=== PATIENT | female | born 1945 | race Caucasian/White ===

== ENCOUNTER 2019-09-28 19:58 | Inpatient (IN) | payer MEDICARE, OTHER ==
[~2019-09-28] VITALS: Ht 154.9 cm; Wt 65.5 kg
[2019-09-28] MEDS: NS IV 1000 ML 1,000 ML IV SCH ×3 (20:24→22:42)
[2019-09-28] MEDS ORDERED: RT-ALBUTEROL INHALER HFA (VENTOLIN HFA) 18 GM IH ONE (20:30)
[2019-09-28 20:33] LABS: COLOR,URINE YELLOW; GLUCOSE, URINE (UA) NEGATIVE (NEGATIVE); KETONES,URINE TRACE (NEGATIVE); LEUKOCYTE ESTERASE ,URINE NEGATIVE (NEGATIVE); NITRITE,URINE NEGATIVE (NEGATIVE); PH,URINE 5.5 (5-9); PROTEIN,URINE TRACE (NEGATIVE)
[2019-09-28 20:33] LABS: BASOPHILS % (AUTO) 0 % (0-10); EOSINOPHILS # (AUTO) 0.1 10^3/uL (0.0-0.3); EOSINOPHILS % (AUTO) 0 % (0-10); HEMATOCRIT 35 % (35-52); HEMOGLOBIN 11.7 G/DL (11.5-16.0); LYMPHOCYTES % (AUTO) 4 % (12-44); MEAN CORPUSCULAR HEMOGLOBIN 30 PG (25-34); MEAN CORPUSCULAR HGB CONC 33 G/DL (32-36); MEAN CORPUSCULAR VOLUME 90 FL (80-99); MEAN PLATELET VOLUME 9.9 FL (7.4-10.4); MONOCYTES # (AUTO) 1.2 X 10^3 (0.0-1.0); MONOCYTES % (AUTO) 5 % (0-12); NEUTROPHILS # (AUTO) 22.2 X 10^3 (1.8-7.8); NEUTROPHILS % (AUTO) 91 % (42-75); PLATELET COUNT 244 10^3/uL (130-400); RED CELL DISTRIBUTION WIDTH 15.6 % (10.0-14.5); WHITE BLOOD COUNT 24.5 10^3/uL (4.3-11.0)
[2019-09-28 20:38] LABS: FIBRIN DEGRADATION PRODUCTS 2.68 UG/ML (0.00-0.49); INR 1.2 (0.8-1.4); PROTHROMBIN TIME PATIENT 15.1 SEC (12.2-14.7)
[2019-09-28 20:41] LABS: BILIRUBIN,URINE 1+ (NEGATIVE); CLARITY,URINE SL CLOUDY
[2019-09-28 20:43] LABS: AMORPHOUS SEDIMENT,UR FEW AMOR URATES /LPF; BACTERIA,URINE TRACE /HPF; HYALINE CASTS, URINE 0-2 /LPF; RBC,URINE RARE /HPF; SQUAMOUS EPITHELIAL CELL,UR RARE /HPF
--- NOTE | 2019-09-28 20:43 | ED General ---
General Chief Complaint: Respiratory Problems Stated Complaint: AMS Nursing Triage Note: pt brought in by [facility] from home with complaint of soa, alt mental status and fall. Nursing Sepsis Screen: No Definite Risk History of Present Illness Date Seen by Provider: Sep 28, 2019 Time Seen by Provider: 20:05 Initial Comments 74-year-old female presents via EMS for shortness of air and fall 2 days ago, with right forearm pain. Reports taste and smell have been decreased the last week. No head injury or LOC. Known history of COPD but hasn't seen physician in 3-4 years. Was diagnosed with COPD after [place], used inhalers initially. No fevers and homebound but family members have been in her home, daughter lives in [place], [place]. No known exposure to anyone with COVID-19. Does not take any Rx medications. Took Ibuprofen yesterday for right arm pain. History of smoking 1 pack/day, but for last week 1/4 pack a day. Denies chest pain, n/v or diaphoresis. 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 Timing/Duration: 3-4 Days Associated Systoms: Cough; No Fever/Chills; Shortness of Air, Weakness Allergies and Home Medications Allergies Coded Allergies: No Known Drug Allergies (Unverified , 09/28/19) Patient Home Medication List Home Medication List Reviewed: Yes Review of Systems Review of Systems Constitutional: see HPI, weakness Respiratory: see HPI, cough, dyspnea on exertion, phlegm, short of breath Cardiovascular: no symptoms reported, see HPI; No chest pain, No Hx of Intervention Gastrointestinal: no symptoms reported, see HPI Genitourinary: no symptoms reported, see HPI Musculoskeletal: see HPI, joint pain (right forearm) Skin: no symptoms reported, see HPI Past Owsycmw-[id number]-[id number] Hx Past Med/Social Hx: Reviewed Nursing Past Med/Soc Hx Patient Social History Alcohol Use: Denies Use Recreational Drug Use: No Smoking Status: Current Everyday Smoker Recent Foreign Travel: No Contact w/Someone Who Travel: No Recent Infectious Disease Expo: No Recent Hopitalizations: No Immunizations Up To Date Tetanus Booster (TDap): Unknown Seasonal Allergies Seasonal Allergies: No Past Medical History Surgeries: Yes Appendectomy Respiratory: Yes COPD Cardiac: No Neurological: No Genitourinary: No Gastrointestinal: No Musculoskeletal: No Endocrine: No HEENT: No Cancer: No Psychosocial: No Integumentary: No Blood Disorders: No Physical Exam-Suspected Sepsis Physical Exam Vital Signs Vital Signs - First Documented 09/28/19 09/28/19 09/28/19 19:58 20:20 21:40 Temp 35.6 Pulse 138 Resp 27 B/P (MAP) 94/59 (71) Pulse Ox 98 O2 Delivery Room Air O2 Flow Rate 2.00 FiO2 40 Capillary Refill : Less Than 3 Seconds Blood Pressure Mean: 71 Height, Weight, BMI Height: '" Weight: lbs. oz. kg; 25.00 BMI Method: General Appearance: No Apparent Distress, WD/WN Eyes: Bilateral Eye Normal Inspection, Bilateral Eye PERRL, Bilateral Eye EOMI HEENT: PERRL/EOMI, TMs Normal, Normal ENT Inspection, Pharynx Normal Neck: Full Range of Motion, Normal Inspection, Non Tender Respiratory: Accessory Muscle Use, Decreased Breath Sounds, Rhonci, Other (marked clubbing to fingers) Cardiovascular: Irregularly Irregular, Tachycardia Gastrointestinal: Normal Bowel Sounds, Non Tender, Soft Extremity: Normal Range of Motion, Pedal Edema, Other (Tenderness Right forearm with 2 + Edema. 1+ edema to LEs. ) Neurologic/Psychiatric: Alert, Oriented x3, No Motor/Sensory Deficits, Normal Mood/Affect Skin: normal color, warm/dry, ulcerations (small abrasion left forearm, edema to right arm. ) Lymphatic: No Adenopathy Focused Exam Sepsis Stage: Septic Shock Lactate Level 09/28/19 20:10: Lactic Acid Level 2.99*H 09/28/19 22:37: Time of Focused Exam: 22:30 Respiratory: Decreased Breath Sounds, Rhonci Cardiovascular: Normal Peripheral Pulses, Irregularly Irregular, Tachycardia Capillary Refill: Less Than 3 Seconds Skin: warm/dry, pallor Lactic Acid Level Laboratory Tests Test 09/28/19 20:10 09/28/19 22:37 Lactic Acid Level 2.99 MMOL/L (0.50-2.00) *H Within 3hrs of presentation: Admin fluids, Admin 30ml/kg IBW due to BMI>30, Admin ABX, Blood cultures prior to ABX's, Focus exam, Lactate level, Vasopressin therapy Progress/Results/Core Measures Suspected Sepsis Recent Fever Within 48 Hours: No Infection Criteria Present: None New/Unexplained Altered Menta: No Sepsis Screen: No Definite Risk SIRS Temperature: Pulse: 138 Respiratory Rate: 27 Laboratory Tests 09/28/19 20:10: White Blood Count 24.5H Blood Pressure 94 /59 Mean: 71 09/28/19 20:10: Lactic Acid Level 2.99*H 09/28/19 22:37: Laboratory Tests 09/28/19 20:10: Creatinine 1.14, INR Comment 1.2, Platelet Count 244, Total Bilirubin 1.6H Results/Orders Lab Results Laboratory Tests Test 09/28/19 00:00 09/28/19 20:10 09/28/19 20:22 09/28/19 20:24 Range/Units White Blood Count 24.5 H 4.3-11.0 10^3/uL Red Blood Count 3.91 L 4.35-5.85 10^6/uL Hemoglobin 11.7 11.5-16.0 G/DL Hematocrit 35 35-52 % Mean Corpuscular Volume 90 80-99 FL Mean Corpuscular Hemoglobin 30 25-34 PG Mean Corpuscular Hemoglobin Concent 33 32-36 G/DL Red Cell Distribution Width 15.6 H 10.0-14.5 % Platelet Count 244 130-400 10^3/uL Mean Platelet Volume 9.9 7.4-10.4 FL Neutrophils (%) (Auto) 91 H 42-75 % Lymphocytes (%) (Auto) 4 L 12-44 % Monocytes (%) (Auto) 5 0-12 % Eosinophils (%) (Auto) 0 0-10 % Basophils (%) (Auto) 0 0-10 % Neutrophils # (Auto) 22.2 H 1.8-7.8 X 10^3 Lymphocytes # (Auto) 1.0 1.0-4.0 X 10^3 Monocytes # (Auto) 1.2 H 0.0-1.0 X 10^3 Eosinophils # (Auto) 0.1 0.0-0.3 10^3/uL Basophils # (Auto) 0.0 0.0-0.1 10^3/uL Neutrophils % (Manual) 86 % Lymphocytes % (Manual) 5 % Monocytes % (Manual) 4 % Eosinophils % (Manual) 0 % Basophils % (Manual) 0 % Band Neutrophils 5 % Polychromasia SLIGHT Anisocytosis SLIGHT Tear Drop Cells SLIGHT Erythrocyte Sedimentation Rate 9 0-30 MM/HR Prothrombin Time 15.1 H 12.2-14.7 SEC INR Comment 1.2 0.8-1.4 Activated Partial Thromboplast Time 37 H 24-35 SEC D-Dimer 2.68 H 0.00-0.49 UG/ML Sodium Level 131 L 135-145 MMOL/L Potassium Level 4.2 3.6-5.0 MMOL/L Chloride Level 91 L 98-107 MMOL/L Carbon Dioxide Level 25 21-32 MMOL/L Anion Gap 15 H 5-14 MMOL/L Blood Urea Nitrogen 33 H 7-18 MG/DL Creatinine 1.14 0.60-1.30 MG/DL Estimat Glomerular Filtration Rate 47 BUN/Creatinine Ratio 29 Glucose Level 103 70-105 MG/DL Lactic Acid Level 2.99 *H 0.50-2.00 MMOL/L Calcium Level 10.0 8.5-10.1 MG/DL Corrected Calcium 10.8 H 8.5-10.1 MG/DL Total Bilirubin 1.6 H 0.1-1.0 MG/DL Aspartate Amino Transf (AST/SGOT) 14 5-34 U/L Alanine Aminotransferase (ALT/SGPT) 10 0-55 U/L Alkaline Phosphatase 62 40-136 U/L Lactate Dehydrogenase 223 H 125-220 U/L Troponin I 0.172 H <0.028 NG/ML C-Reactive Protein High Sensitivity 24.52 H 0.00-0.50 MG/DL B-Type Natriuretic Peptide 352.4 H <100.0 PG/ML Total Protein 7.1 6.4-8.2 GM/DL Albumin 3.0 L 3.2-4.5 GM/DL Procalcitonin 0.45 H <0.10 NG/ML Urine Color YELLOW Urine Clarity SL CLOUDY Urine pH 5.5 5-9 Urine Specific [place] 1.020 1.016-1.022 Urine Protein TRACE H NEGATIVE Urine Glucose (UA) NEGATIVE NEGATIVE Urine Ketones TRACE H NEGATIVE Urine Nitrite NEGATIVE NEGATIVE Urine Bilirubin 1+ H NEGATIVE Urine Urobilinogen 2.0 < = 1.0 MG/DL Urine Leukocyte Esterase NEGATIVE NEGATIVE Urine RBC (Auto) 1+ H NEGATIVE Urine RBC RARE /HPF Urine WBC NONE /HPF Urine Squamous Epithelial Cells RARE /HPF Urine Crystals PRESENT H /LPF Urine Amorphous Sediment FEW SHAYY URATES H /LPF Urine Bacteria TRACE /HPF Urine Casts PRESENT /LPF Urine Hyaline Casts 0-2 H /LPF Urine Mucus SMALL H /LPF Urine Culture Indicated NO Coronavirus 2019 (MARA) Negative Negative Test 09/28/19 21:33 09/28/19 22:37 Range/Units Blood Gas Puncture Site R RAD Blood Gas Patient Temperature 36.2 Arterial Blood pH 7.47 H 7.37-7.43 Arterial Blood Partial Pressure CO2 33 L 35-45 MMHG Arterial Blood Partial Pressure O2 132 H 79-93 MMHG Arterial Blood HCO3 24 23-27 MMOL/L Arterial Blood Total CO2 24.7 21.0-31.0 MMOL/L Arterial Blood Oxygen Saturation 99 94-100 % Arterial Blood Base Excess 0.2 -2.5-2.5 MMOL/L Angel Test YES-POS Blood Gas Ventilator Setting NO Blood Gas Inspired Oxygen 2L My Orders Orders - FREEMAN WILLIAM Cbc With Automated Diff (09/28/19 20:05) Comprehensive Metabolic Panel (09/28/19 20:05) Blood Culture (09/28/19 20:05) Sputum Culture (09/28/19 20:05) Urinalysis (09/28/19 20:05) Urine Culture (09/28/19 20:05) Protime With Inr (09/28/19 20:05) Partial Thromboplastin Time (09/28/19 20:05) Chest 1 View, Ap/Pa Only (09/28/19 20:05) Ed Iv/Invasive Line Start (09/28/19 20:05) Vital Signs Adult Sepsis Patie Q15M (09/28/19 20:05) O2 (09/28/19 20:05) Remove Rings In Anticipation O (09/28/19 20:05) Lactic Acid Analyzer (09/28/19 20:05) Ed Iv/Invasive Line Start (09/28/19 20:05) Ns Iv 1000 Ml (Sodium Chloride 0.9%) (09/28/19 20:05) Fibrin Degradation Products (09/28/19 20:05) Procalcitonin (Pct) (09/28/19 20:05) Hs C Reactive Protein (09/28/19 20:05) Erythrocyte Sedimentation Rate (09/28/19 20:05) LDH (09/28/19 20:05) Covid 19 Inhouse Test (09/28/19 20:05) Troponin I (09/28/19 20:15) Forearm, Right, 2 Views (09/28/19 20:24) Albuterol Inhaler (Ventolin Hfa) (09/28/19 20:30) Manual Differential (09/28/19 20:10) Aspirin Chewable Tablet (Baby Aspirin Ch (09/28/19 21:00) Vapotherm - Admin Rt Rfs (09/28/19 20:51) Coronavirus Sars-Cov-2 So 2019 (09/28/19 20:55) Norepinephrine 4 Mg/250 Ml (Norepinephri (09/28/19 20:57) Norepinephrine 4 Mg/250 Ml (Norepinephri (09/28/19 21:15) BNP (09/28/19 21:12) Arterial Blood Gas (09/28/19 21:20) Strep Pneumococcusag Urine/Csf (09/28/19 21:23) Legionella Pneum Antigen Urine (09/28/19 21:23) Catheter(Uri) To Dependent Daisy (09/28/19 21:26) Azithromycin Injection (Zithromax Inject (09/28/19 21:30) Ceftriaxone For Iv Use (Rocephin For I (09/28/19 21:30) Arterial Blood Gas (09/28/19 21:34) Enoxaparin Injection (Lovenox Injection) (09/28/19 22:15) Enoxaparin Injection (Lovenox Injection) (09/28/19 22:06) Dexamethasone Tablet (Decadron Tablet) (09/28/19 22:31) Ns Iv 1000 Ml (Sodium Chloride 0.9%) (09/28/19 22:45) Medications Given in ED Current Medications Medications Dose Ordered Sig/Shyanne Route Start Time Stop Time Status Last Admin Dose Admin Albuterol Sulfate 18 gm STK-MED ONCE IH 09/28/19 20:30 09/28/19 20:34 DC 09/28/19 20:35 18 GM Aspirin 324 mg ONCE ONCE PO 09/28/19 21:00 09/28/19 21:01 DC 09/28/19 21:07 324 MG Azithromycin 500 mg/Sodium Chloride 250 ml @ 250 mls/hr ONCE ONCE IV 09/28/19 21:30 09/28/19 22:29 DC 09/28/19 22:24 250 MLS/HR Ceftriaxone Sodium 2000 mg/ Sterile Water 20 ml @ 240 mls/hr ONCE ONCE IV 09/28/19 21:30 09/28/19 21:34 DC 09/28/19 22:24 240 MLS/HR Vital Signs/I&O 09/28/19 09/28/19 09/28/19 09/28/19 19:58 20:20 21:00 21:40 Temp 35.6 Pulse 138 130 Resp 27 B/P (MAP) 94/59 (71) 81/25 Pulse Ox 98 O2 Delivery Room Air Nasal Cannula Vapotherm O2 Flow Rate 2.00 20.00 FiO2 40 Capillary Refill : Less Than 3 Seconds Blood Pressure Mean: 71 Progress Note : Time: 20:05 Progress Note Patient seen and evaluated, COVID in house screen. NS 1 L infusing per EMS, will start second unit. Hypotensive 90s/50s, tachy 120-140. Chest xray, Labs, EKG. ASA 324 mg po 2029 Will give Lovenox 60 mg SC. 2099 B/P down to 60/30s, will start Levophed. Dr. Do consult for central line. RT here for ABGs and Vapotherm [address] Campbell, agreed to accept patient for ICU admission. Orders r eceived. 2144 B/P 105/60, pulse 105-110. Rocephin and azithromycin IV. 2199 unable to put central line in neck, Clot noted to Right IJ on ultrasound per Dr. Do. Will use right groin. Will plan CT angio chest, after central line. [address] Castanon, agree with plan of care, will continue Lovenox 60 mg BID, Cardizem drip if needed for HR > 130. 2239 Spoke to E ICU DrCarlos Report given. Will start Decadron 6 mg po daily. Discussed CT angio, since DNR and likely COVID-19 and Pneumonia, no need since covering with Lovenox. 2304 Patient to ICU. She has remained stable but guarded. B/P 90/57, HR A fib 110-120. ECG Initial ECG Impression Date: Sep 28, 2019 Initial ECG Impression Time: 20:08 Initial ECG Rate: 137 Initial ECG Rhythm: A Fib/Flutter Initial ECG Intervals: Normal Initial ECG Intervals QRSD 93, QT 347, QTc 524. [place] QRS 83, T -27 Diagnostic Imaging Diagonstic Imaging: CT Plain Films/CT/US/NM/MRI: chest Comments NAME: RUTHIE KEENE [facility] REC#: [id number] PT STATUS: REG ER : 1945 PHYSICIAN: FREEMAN WILLIAM ADMIT DATE: 09/28/19/ER Draft Date of Exam:09/28/19 CHEST 1 VIEW, AP/PA ONLY Clinical indication: Patient with shortness of air and history of COPD and asthma. Exam: Portable chest x-ray upright view. Comparisons: None. Findings: There is volume loss and small to moderate amount of consolidation involving the right perihilar region. Unknown if this represents atelectasis or a mass. There is also mild prominence of the upper mediastinum. There is a small right pleural effusion. The remainder of the lungs are clear. There is no pneumothorax. There are hypertrophic spurs involving the thoracic spine. Pulmonary vasculature and cardiac silhouette are within normal limits. Impression: 1: There is a small to moderate size area of consolidation in the right perihilar region. There is slight volume loss in the right lung. Unknown if the right perihilar area of consolidation represents a mass or consolidation. Chest CT scan with contrast is suggested for further evaluation. 2: There is a small right pleural effusion. Dictated on workstation # [id number] Dict: 09/28/[id number] Trans: 09/28/192137 [facility] [id number] Interpreted by: OCTAVIO YU MD Reviewed: Reviewed by Me Departure Impression Primary Impression: Septic shock Additional Impressions: Right middle lobe pneumonia Qualified Codes: J18.9 - Pneumonia, unspecified organism Atrial fibrillation with RVR Tobacco abuse COPD exacerbation Person under investigation for COVID-19 Disposition: ADMITTED INPATIENT Condition: Critical Admissions Decision to Admit Reason: Admit from ER (General) Decision to Admit/Date: Sep 28, 2019 Time/Decision to Admit Time: 21:00 Departure-Patient Inst. Referrals: NO,LOCAL PHYSICIAN (PCP/Family) Primary Care Physician FREEMAN WILLIAM Sep 28, 2019 20:43
[2019-09-28 20:52] LABS: BAND NEUTROPHILS 5 %; BASOPHILS % (MANUAL) 0 %; EOSINOPHILS % (MANUAL) 0 %; LYMPHOCYTES % (MANUAL) 5 %; MONOCYTES % (MANUAL) 4 %; NEUTROPHILS % (MANUAL) 86 %; POLYCHROMASIA SLIGHT
[2019-09-28 20:53] LABS: ANISOCYTOSIS SLIGHT; TEAR DROP CELLS SLIGHT
[2019-09-28 20:54] LABS: ERYTHROCYTE SEDIMENTATION RATE 9 MM/HR (0-30)
[2019-09-28] MEDS ORDERED: NOREPINEPHRINE 4 MG/250 ML 250 ML IV ONE (20:57)
[2019-09-28] MEDS ORDERED: ASPIRIN 81 MG CHEW (CHILDREN'S ASA) PO ONE (21:00)
[2019-09-28] MEDS: NOREPINEPHRINE 4 MG/250 ML 250 ML IV SCH (21:00)
[2019-09-28 21:04] LABS: BILIRUBIN,TOTAL 1.6 MG/DL (0.1-1.0); CREATININE SERUM 1.14 MG/DL (0.60-1.30); POTASSIUM 4.2 MMOL/L (3.6-5.0); TOTAL PROTEIN 7.1 GM/DL (6.4-8.2)
[2019-09-28] MEDS ORDERED: AZITHROMYCIN INJECTION 500 MG in NS (IVPB) 250 ML IV ONE (21:30)
[2019-09-28] MEDS ORDERED: cefTRIAXone FOR IV USE 2,000 MG in WATER (STERILE) FOR INJECTION 20 ML IV ONE (21:30)
--- NOTE | 2019-09-28 21:35 | Diagnostic Imaging Report ---
CLINICAL INDICATION: Patient status post fall. Patient has right forearm pain and swelling. EXAM: X-ray of the right forearm, 2 views. COMPARISON: None. FINDINGS: There is no acute fracture or dislocation. There is no elbow effusion. There are degenerative spurs involving the distal humeral medial and lateral epicondylar regions. The visualized portions of the wrist are unremarkable. Nonspecific swelling about the right upper extremity is seen. There is no radiodense foreign object. IMPRESSION: 1: There is no acute fracture or dislocation seen. 2: There is nonspecific swelling involving the visualized portions of the right arm. Dictated by: Dictated on workstation # [id number]
--- NOTE | 2019-09-28 21:38 | Diagnostic Imaging Report ---
Clinical indication: Patient with shortness of air and history of COPD and asthma. Exam: Portable chest x-ray upright view. Comparisons: None. Findings: There is volume loss and small to moderate amount of consolidation involving the right perihilar region. Unknown if this represents atelectasis or a mass. There is also mild prominence of the upper mediastinum. There is a small right pleural effusion. The remainder of the lungs are clear. There is no pneumothorax. There are hypertrophic spurs involving the thoracic spine. Pulmonary vasculature and cardiac silhouette are within normal limits. Impression: 1: There is a small to moderate size area of consolidation in the right perihilar region. There is slight volume loss in the right lung. Unknown if the right perihilar area of consolidation represents a mass or consolidation. Chest CT scan with contrast is suggested for further evaluation. 2: There is a small right pleural effusion. Dictated by: Dictated on workstation # [id number]
[2019-09-28 21:39] LABS: ABG BASE EXCESS 0.2 MMOL/L (-2.5-2.5); ABG OXYGEN SATURATION 99 % (94-100); ABG PCO2 33 MMHG (35-45); ABG PH 7.47 (7.37-7.43); ABG PO2 132 MMHG (79-93); ABG TCO2 24.7 MMOL/L (21.0-31.0); ALLENS TEST YES-POS; INSPIRED O2 2L; VENTILATOR NO
[2019-09-28 21:40] LABS: PATIENT TEMP 36.2
[2019-09-28] MEDS ORDERED: ENOXAPARIN 60 MG/0.6 ML (LOVENOX) SYR ONE (22:06)
[2019-09-28] MEDS ORDERED: ENOXAPARIN 60 MG/0.6 ML (LOVENOX) SYR SC ONE (22:15)
[2019-09-28] MEDS ORDERED: dexAMETHasone 6 MG TAB (DECADRON) ONE (22:30)
[2019-09-28] MEDS ORDERED: dexAMETHasone 6 MG TAB (DECADRON) PO STA (22:31)
[2019-09-28 23:18] VITALS: BP 83/66
[2019-09-28 23:30] VITALS: BP 89/42
[2019-09-28] MEDS ORDERED: ONDANSETRON 4 MG/2 ML (SDV) Z0FRAN IV PRN (23:30)
[2019-09-28 23:45] VITALS: BP 89/56
--- NOTE | 2019-09-28 23:57 | Consultation - Surgery ---
History of Present Illness History of Present Illness Patient Consulted On(catia/time) 09/28/19 23:52 Date Seen by Provider: Sep 28, 2019 Time Seen by Provider: 23:00 History of Present Illness Consult requested by Ling Duckworth for central line placement for Sepsis. Seen and evaluated in ED. Patient is a 74 year old female who has been having shortness of air and a fall about 2 days ago. Has increased shortness of breath last couple days. Has COPD. In ER her blood pressure has dropped into 80-90's systolic. Received fluids and now requiring pressors. Denies fever sweats chills chest pain. Chest x ray right upper lobe consolidation. Allergies and Home Medications Allergies Coded Allergies: No Known Drug Allergies (Unverified , 09/28/19) Patient Home Medication List Home Medication List Reviewed: Yes Past [id number]-Oivlxz Hx Patient Social History Alcohol Use: Denies Use Recreational Drug Use: No Smoking Status: Current Everyday Smoker Recent Foreign Travel: No Contact w/Someone Who Travel: No Recent Infectious Disease Expo: No Recent Hopitalizations: No Immunizations Up To Date Tetanus Booster (TDap): Unknown Seasonal Allergies Seasonal Allergies: No Surgeries History of Surgeries: Yes Surgeries: Appendectomy Respiratory History of Respiratory Disorde: Yes Respiratory Disorders: COPD Cardiovascular History of Cardiac Disorders: No Neurological History of Neurological Disord: No Genitourinary History of Genitourinary Disor: No Gastrointestinal History of Gastrointestinal Di: No Musculoskeletal History of Musculoskeletal Dis: No Endocrine History of Endocrine Disorders: No HEENT History of HEENT Disorders: No Cancer History of Cancer: No Psychosocial History of Psychiatric Problem: No Integumentary History of Skin or Integumenta: No Blood Transfusions History of Blood Disorders: No Reviewed Nursing Assessment Reviewed/Agree w Nursing PMH: Yes Family Medical History Significant Family History: No Pertinent Family Hx Review of Systems-General Constitutional: No chills, No diaphoresis EENTM: No blurred vision, No double vision Respiratory: dyspnea on exertion, short of breath Cardiovascular: No chest pain; edema Gastrointestinal: No abdominal pain, No diarrhea, No nausea, No vomiting Genitourinary: No decreased output, No discharge Musculoskeletal: No back pain, No joint pain Skin: No change in color, No change in hair/nails Psychiatric/Neurological: Denies Anxiety, Denies Depressed All Other Systems Reviewed Negative Unless Noted: Yes (Negative excepted noted.) Physical Exam-General Problems Physical Exam Vital Signs Vital Signs - First Documented 09/28/19 09/28/19 09/28/19 19:58 20:20 21:40 Temp 35.6 Pulse 138 Resp 27 B/P (MAP) 94/59 (71) Pulse Ox 98 O2 Delivery Room Air O2 Flow Rate 2.00 FiO2 40 Capillary Refill : Less Than 3 Seconds General Appearance: mild distress, other (chronicallly ill appearing) HEENT: PERRL/EOMI, normal ENT inspection Neck: non-tender, supple Respiratory: chest non-tender, other (slightly labored breathing, equal chest rise) Cardiovascular: irregularly irregular Gastrointestinal: non tender, soft Rectal: deferred Back: no CVA tenderness, no vertebral tenderness Extremities: non-tender, swelling Neurologic/Psychiatric: no motor/sensory deficits, alert, normal mood/affect, oriented x 3 Skin: normal color, warm/dry Lymphatic: no adenopathy Data Review Labs Laboratory Tests 09/28/19 20:10: White Blood Count 24.5H, Red Blood Count 3.91L, Hemoglobin 11.7, Hematocrit 35, Mean Corpuscular Volume 90, Mean Corpuscular Hemoglobin 30, Mean Corpuscular Hemoglobin Concent 33, Red Cell Distribution Width 15.6H, Platelet Count 244, Mean Platelet Volume 9.9, Neutrophils (%) (Auto) 91H, Lymphocytes (%) (Auto) 4L, Monocytes (%) (Auto) 5, Eosinophils (%) (Auto) 0, Basophils (%) (Auto) 0, Neutrophils # (Auto) 22.2H, Lymphocytes # (Auto) 1.0, Monocytes # (Auto) 1.2H, Eosinophils # (Auto) 0.1, Basophils # (Auto) 0.0, Neutrophils % (Manual) 86, Lymphocytes % (Manual) 5, Monocytes % (Manual) 4, Eosinophils % (Manual) 0, Basophils % (Manual) 0, Band Neutrophils 5, Polychromasia SLIGHT, Anisocytosis SLIGHT, Tear Drop Cells SLIGHT, Erythrocyte Sedimentation Rate 9, Prothrombin Time 15.1H, INR Comment 1.2, Activated Partial Thromboplast Time 37H, D-Dimer 2.68H, Sodium Level 131L, Potassium Level 4.2, Chloride Level 91L, Carbon Dioxide Level 25, Anion Gap 15H, Blood Urea Nitrogen 33H, Creatinine 1.14, Estimat Glomerular Filtration Rate 47, BUN/Creatinine Ratio 29, Glucose Level 103, Lactic Acid Level 2.99*H, Calcium Level 10.0, Corrected Calcium 10.8H, Total Bilirubin 1.6H, Aspartate Amino Transf (AST/SGOT) 14, Alanine Aminotransferase (ALT/SGPT) 10, Alkaline Phosphatase 62, Lactate Dehydrogenase 223H, Troponin I 0.172H, C-Reactive Protein High Sensitivity 24.52H, B-Type Natriuretic Peptide 352.4H, Total Protein 7.1, Albumin 3.0L, Procalcitonin 0.45H 09/28/19 20:22: Urine Color YELLOW, Urine Clarity SL CLOUDY, Urine pH 5.5, Urine Specific [place] 1.020, Urine Protein TRACEH, Urine Glucose (UA) NEGATIVE, Urine Ketones TRACEH, Urine Nitrite NEGATIVE, Urine Bilirubin 1+H, Urine Urobilinogen 2.0, Urine Leukocyte Esterase NEGATIVE, Urine RBC (Auto) 1+H, Urine RBC RARE, Urine WBC NONE, Urine Squamous Epithelial Cells RARE, Urine Crystals PRESENTH, Urine Amorphous Sediment FEW SHAYY URATESH, Urine Bacteria TRACE, Urine Casts PRESENT, Urine Hyaline Casts 0-2H, Urine Mucus SMALLH, Urine Culture Indicated NO 09/28/19 20:24: Coronavirus 2019 (MARA) Negative 09/28/19 21:33: Blood Gas Puncture Site R RAD, Blood Gas Patient Temperature 36.2, Arterial Blood pH 7.47H, Arterial Blood Partial Pressure CO2 33L, Arterial Blood Partial Pressure O2 132H, Arterial Blood HCO3 24, Arterial Blood Total CO2 24.7, Arterial Blood Oxygen Saturation 99, Arterial Blood Base Excess 0.2, Angel Test YES-POS, Blood Gas Ventilator Setting NO, Blood Gas Inspired Oxygen 2L 09/28/19 22:37: Lactic Acid Level 1.56 Assessment/Plan Assessment/Plan Assessment/Plan sepsis hypotension COPD Afib rvr Patient right upper lung consolidation will need CT for further work up when stable Patient requiring pressors for hypotension, needs central line placed. She was discussed risks and benefits and she wishes to proceed. Patient I peformed u/s and it appears that the right IJ has a clot. So placed right femoral u/s guided central line. Patient tolerated procedure well. Sent to ICU for medical management. Clinical Quality Measures DVT/VTE Risk/Contraindication: Risk Factor Score Per Nursin RFS Level Per Nursing on Admit: 4+=Very High SCOTT GARAY DO Sep 28, 2019 23:57
[2019-09-29] VITALS (27 sets, daily range): BP systolic 89–115; BP diastolic 44–76
[2019-09-29] MEDS: dilTIAZem DRIP PRE-MIX 125 ML IV SCH ×2 (00:39→10:10)
[2019-09-29] MEDS ORDERED: RT-ALBUTEROL INHALER HFA (VENTOLIN HFA) 18 GM IH PRN (01:15)
[2019-09-29] MEDS: NS IV 1000 ML 1,000 ML IV SCH ×6 (02:38→17:59)
--- NOTE | 2019-09-29 03:01 | NUR ---
EICU NOTIFIED OF LOW URINE OUTPUT. SEE ORDER HX
[2019-09-29] MEDS ORDERED: NS (IVPB) 250 ML IV ONE (03:15)
[2019-09-29] MEDS: ACETAMINOPHEN 325 MG TABLET PO PRN ×2 (04:23→23:21)
[2019-09-29 04:38] LABS: BASOPHILS % (AUTO) 0 % (0-10); EOSINOPHILS % (AUTO) 0 % (0-10); HEMATOCRIT 30 % (35-52); HEMOGLOBIN 10.1 G/DL (11.5-16.0); LYMPHOCYTES # (AUTO) 0.3 X 10^3 (1.0-4.0); LYMPHOCYTES % (AUTO) 1 % (12-44); MEAN CORPUSCULAR HEMOGLOBIN 30 PG (25-34); MEAN CORPUSCULAR HGB CONC 33 G/DL (32-36); MEAN CORPUSCULAR VOLUME 90 FL (80-99); MEAN PLATELET VOLUME 9.8 FL (7.4-10.4); MONOCYTES # (AUTO) 0.4 X 10^3 (0.0-1.0); MONOCYTES % (AUTO) 2 % (0-12); NEUTROPHILS # (AUTO) 22.9 X 10^3 (1.8-7.8); NEUTROPHILS % (AUTO) 97 % (42-75); PLATELET COUNT 230 10^3/uL (130-400); RED CELL DISTRIBUTION WIDTH 15.7 % (10.0-14.5); WHITE BLOOD COUNT 23.6 10^3/uL (4.3-11.0)
[2019-09-29 04:57] LABS: ALBUMIN 2.5 GM/DL (3.2-4.5); BILIRUBIN,TOTAL 0.9 MG/DL (0.1-1.0); CALCIUM 8.1 MG/DL (8.5-10.1); CREATININE SERUM 0.95 MG/DL (0.60-1.30); INR 1.2 (0.8-1.4); MAGNESIUM 1.8 MG/DL (1.6-2.4); PHOSPHORUS 3.3 MG/DL (2.3-4.7); POTASSIUM 3.9 MMOL/L (3.6-5.0); PROTHROMBIN TIME PATIENT 15.7 SEC (12.2-14.7); TOTAL PROTEIN 5.7 GM/DL (6.4-8.2)
--- NOTE | 2019-09-29 05:01 | OPERATIVE REPORT ---
DATE OF SERVICE: 09/28/2019 PREOPERATIVE DIAGNOSES: Hypotension, sepsis. POSTOPERATIVE DIAGNOSES: Hypotension, sepsis. PROCEDURE: Right ultrasound-guided femoral vein central line placement. SURGEON: Scott Do DO ANESTHESIA: A 1% lidocaine. ESTIMATED BLOOD LOSS: Minimal. COMPLICATIONS: None. INDICATIONS: The patient is a 74-year-old female in need of a central line due to hypotension caused by sepsis. She understands risks and benefits of procedure and wishes to proceed. The right groin was prepped and draped in a sterile fashion. A timeout was performed. Ultrasound was used to isolate the right femoral vein. Local anesthetic, 3 mL of 1% lidocaine was used to anesthetize the area and under ultrasound guidance, the right femoral vein was accessed, dark nonpulsatile blood was withdrawn. A guidewire was inserted through the needle and the needle was removed. A #11 blade scalpel was used to make a small skin incision. Dilator was advanced over the wire and removed and then the triple lumen catheter was inserted over the wire and the wire was removed. All ports were accessed and flushed without difficulty. The line was sutured in the usual fashion. The area was then washed and dried and sterile bandage was applied. The patient tolerated procedure well without any complications. Job ID: [id number] DocumentID: [id number] Dictated Date: 09/29/2019 00:22:26 Buckle Stringer Date: 09/29/2019 05:01:07 Dictated By: SCOTT DO DO
[2019-09-29] MEDS: RT-ALBUTEROL INHALER HFA (VENTOLIN HFA) 18 GM IH SCH ×4 (06:31→18:30)
[2019-09-29] MEDS: ENOXAPARIN 60 MG/0.6 ML (LOVENOX) SYR SC SCH ×2 (09:36→20:11)
[2019-09-29] MEDS: dexAMETHasone 6 MG TAB (DECADRON) PO SCH (09:36)
[2019-09-29] MEDS ORDERED: DIGOXIN 0.25 MG/ML (LANOXIN) 2 ML AMP IV SCH (11:00)
[2019-09-29] MEDS: LORazepam INJ 2 MG/ML (ATIVAN) VIAL IVP PRN (12:43)
[2019-09-29] MEDS: NOREPINEPHRINE 4 MG/250 ML 250 ML IV SCH (12:44)
[2019-09-29] MEDS ORDERED: DIGOXIN 0.25 MG/ML (LANOXIN) 2 ML AMP IV ONE (13:30)
[2019-09-29] MEDS ORDERED: rOPINIRole 1 MG (REQUIP) TABLET PO PRN (14:15)
--- NOTE | 2019-09-29 18:34 | History & Physical-Hospitalist ---
History of Present Illness HPI/Chief Complaint Nyasia Dunlap is a 74 year old female with PMH COPD, tobacco abuse, who presented with shortness of breath. She reports having a fall at home recently. She reports a cough. She denies fevers and chills. She denies chest pain. She denies abdominal pain, nausea, and vomiting. She denies diarrhea. She reportedly has had decreased taste and smell. She has a history of COPD, but has not been taking any medications or inhalers. She denies any history of AFib. She has smoked for over 50 years but says she quit about two weeks ago. Source: patient Exam Limitations: no limitations Date Seen 09/29/19 Time Seen by a Provider: 09:50 Attending Physician Ruth Madsen MD PCP No,Local Physician Referring Physician Date of Admission Sep 28, 2019 at 21:30 Home Medications & Allergies Home Medications Reviewed patient Home Medication Reconciliation performed by pharmacy medication reconciliations roof service technician and/or nursing. Patients Allergies have been reviewed. Allergies Allergies Coded Allergies No Known Drug Allergies (Unverified09/28/19) Past Fwyktid-Ipvozq-Uvvvqs Hx Past Med/Social Hx: Reviewed Nursing Past Med/Soc Hx Patient Social History Alcohol Use: Denies Use Recreational Drug Use: No Smoking Status: Current Everyday Smoker Recent Foreign Travel: No Contact w/other who traveled: No Recent Hopitalizations: No Recent Infectious Disease Expo: No Immunizations Up To Date Tetanus Booster (TDap): Unknown Seasonal Allergies Seasonal Allergies: No Past Medical History Surgeries: Appendectomy History of Blood Disorders: No Family History No Pertinent Family Hx Review of Systems Constitutional: no symptoms reported EENTM: no symptoms reported Respiratory: cough, short of breath Cardiovascular: no symptoms reported Gastrointestinal: no symptoms reported Genitourinary: no symptoms reported Musculoskeletal: no symptoms reported Skin: no symptoms reported Psychiatric/Neurological: No Symptoms Reported Physical Exam Physical Exam Vital Signs Vital Signs - First Documented 09/28/19 09/28/19 09/28/19 19:58 20:20 21:40 Temp 35.6 Pulse 138 Resp 27 B/P (MAP) 94/59 (71) Pulse Ox 98 O2 Delivery Room Air O2 Flow Rate 2.00 FiO2 40 Capillary Refill : Less Than 3 Seconds Height, Weight, BMI Height: '" Weight: lbs. oz. kg; 25.42 BMI Method: General Appearance: No Apparent Distress, WD/WN HEENT: PERRL/EOMI, Pharynx Normal Neck: Normal Inspection, Supple Respiratory: Lungs Clear, Normal Breath Sounds, No Respiratory Distress Cardiovascular: No Murmur, Irregularly Irregular, Tachycardia Gastrointestinal: Normal Bowel Sounds, Non Tender, Soft Extremity: Normal Inspection, Non Tender, Pedal Edema Neurologic/Psychiatric: Alert, Oriented x3, No Motor/Sensory Deficits, Normal Mood/Affect Skin: Normal Color, Warm/Dry Results Results/Procedures Labs Laboratory Tests 09/28/19 20:10 09/29/19 04:25 Patient resulted labs reviewed. Imaging: Reviewed Imaging Report Assessment/Plan Admission Diagnosis Septic shock Admission Status: Inpatient Order (span 2 midnights) Reason for Inpatient Admission: Shock requirng IV pressors Assessment and Plan Septic shock Community acquired pneumonia Lactic acidosis Possible lung mass Acute respiratory failure with hypoxia COPD without acute exacerbation Tobacco abuse NSTEMI, likely type II Atiral fibrillation with rapid ventricular response -SIRS+ with leukocytosis and tachycardia -CXR revealed right perihilar consolidation -Hypotensive requiring pressor support -Elevated lactic acid level -UA unremarkable -Blood cultures pending -Procalcitonin elevated, repeat trending downward -Urine strep/legionella antigens pending -Started on Rocephin and Azithromycin -COVID PCR negative, discontinue isolation -Started on Decadron for possible COVID, discontinue -Continue supplemental oxygen as needed -Obtain CT Chest -Troponin elevated 0.17, check repeat level -Started on Cardizem for AFib, transitioned to Digoxin -Cardiology following, appreciate assistance -Started on therapeutic Lovenox Diagnosis/Problems Diagnosis/Problems (1) Septic shock Status: Acute (2) Right middle lobe pneumonia Status: Acute Qualifiers: Pneumonia type: due to unspecified organism Qualified Codes: J18.9 - Pneumonia, unspecified organism (3) Lactic acidosis Status: Acute (4) Acute respiratory failure with hypoxia Status: Acute (5) NSTEMI (non-ST elevation myocardial infarction) Status: Acute (6) Atrial fibrillation with RVR Status: Acute (7) COPD exacerbation Status: Acute (8) Tobacco abuse Status: Acute Clinical Quality Measures DVT/VTE Risk/Contraindication: Risk Factor Score Per Nursin RFS Level Per Nursing on Admit: 4+=Very High RUTH MADSEN MD Sep 29, 2019 18:34
[2019-09-29] MEDS: AZITHROMYCIN 250 MG/NS 250 ML IVPB IV SCH ×2 (20:11)
[2019-09-29] MEDS: cefTRIAXone 1,000 MG/SWFI 10 ML IV PUSH IV SCH ×2 (20:11)
[2019-09-30] VITALS (25 sets, daily range): BP systolic 92–126; BP diastolic 52–76
[2019-09-30] MEDS: NS IV 1000 ML 1,000 ML IV SCH ×3 (04:30→20:27)
[2019-09-30 05:25] LABS: BASOPHILS % (AUTO) 0 % (0-10); EOSINOPHILS % (AUTO) 0 % (0-10); HEMATOCRIT 29 % (35-52); HEMOGLOBIN 9.5 G/DL (11.5-16.0); LYMPHOCYTES # (AUTO) 0.4 X 10^3 (1.0-4.0); LYMPHOCYTES % (AUTO) 2 % (12-44); MEAN CORPUSCULAR HEMOGLOBIN 30 PG (25-34); MEAN CORPUSCULAR HGB CONC 33 G/DL (32-36); MEAN CORPUSCULAR VOLUME 91 FL (80-99); MEAN PLATELET VOLUME 9.7 FL (7.4-10.4); MONOCYTES # (AUTO) 0.7 X 10^3 (0.0-1.0); MONOCYTES % (AUTO) 4 % (0-12); NEUTROPHILS # (AUTO) 17.5 X 10^3 (1.8-7.8); NEUTROPHILS % (AUTO) 94 % (42-75); PLATELET COUNT 227 10^3/uL (130-400); RED CELL DISTRIBUTION WIDTH 15.9 % (10.0-14.5); WHITE BLOOD COUNT 18.6 10^3/uL (4.3-11.0)
--- NOTE | 2019-09-30 05:39 | Diagnostic Imaging Report ---
EXAMINATION: Portable erect AP chest at 5:06 AM INDICATION: Dyspnea The appearance of the chest has worsened since the prior study of 09/28/2019 as the right lung base is now opacified by atelectasis/infiltrate and fluid. The abnormal density about the right hilum seen previously is again evident and no different. There is also a small amount of atelectasis/infiltrate and fluid now present in the left lung base. The left lung is otherwise clear. The heart is stable. The mediastinum is not widened. The osseous structures are intact. IMPRESSION: 1. The appearance of the chest has worsened since the prior study as the right lung base is now opacified by atelectasis/infiltrate and fluid. Mild left lower lobe atelectasis/infiltrate and fluid has also developed. 2. The right perihilar density seen previously is again evident and no different. I would concur with the recommendation of the previous exam that CT of the chest be performed for more sensitive evaluation of this area for a neoplastic mass. Dictated by: Dictated on workstation # [id number]
[2019-09-30 05:44] LABS: BUN/CREATININE RATIO 31; CALCIUM 7.8 MG/DL (8.5-10.1); CARBON DIOXIDE 17 MMOL/L (21-32); CHLORIDE 106 MMOL/L (98-107); CREATININE SERUM 0.81 MG/DL (0.60-1.30); GFR ESTIMATED > 60; GLUCOSE 120 MG/DL (70-105); MAGNESIUM 1.7 MG/DL (1.6-2.4); PHOSPHORUS 2.6 MG/DL (2.3-4.7); POTASSIUM 3.8 MMOL/L (3.6-5.0); SODIUM 135 MMOL/L (135-145)
[2019-09-30] MEDS: RT-ALBUTEROL INHALER HFA (VENTOLIN HFA) 18 GM IH SCH ×5 (07:05→21:52)
[2019-09-30] MEDS: DIGOXIN 0.25 MG (LANOXIN) TAB PO SCH (08:31)
[2019-09-30] MEDS: dexAMETHasone 6 MG TAB (DECADRON) PO SCH (08:31)
[2019-09-30] MEDS: ENOXAPARIN 60 MG/0.6 ML (LOVENOX) SYR SC SCH ×2 (08:31→20:21)
--- NOTE | 2019-09-30 09:15 | NUR ---
Pt taken to CT scan via bed at this time by this RN. VSS during transfer.
--- NOTE | 2019-09-30 10:02 | Diagnostic Imaging Report ---
PROCEDURE: CT angiography of the chest with contrast. TECHNIQUE: Multiple contiguous axial images were obtained through the chest after uneventful bolus administration of intravenous contrast. 3D reconstructed CTA MIP acquisitions were also performed. Auto Exposure Controls were utilized during the CT exam to meet ALARA standards for radiation dose reduction. INDICATION: Right lung mass. PE. Shortness of breath. COMPARISON: Radiographs from the same day FINDINGS: There is marked motion artifact throughout the exam resulting in suboptimal evaluation. There is a large mass in the region of the right hilum which measures up to 9.6 x 6.2 cm on axial imaging. There is no significant enhancement, and a cystic mass is in the differential, however there does appear to be invasion of the right and left atria as well as the interatrial septum. This mass causes severe narrowing of the right upper and lower pulmonary arteries, although some contrast does pass through the arteries. There is severe narrowing to the point of occlusion of the right pulmonary veins. There is also narrowing of the right lower lobe bronchi and there appears to be complete occlusion of the right upper lobe bronchus. Some of the mass measured above could include atelectatic collapse of the right upper lobe. The pulmonary arteries are diagnostic to the segmental level. No filling defects are seen on the left to indicate a pulmonary embolus. The visible portions of the right pulmonary arteries demonstrate no filling defects as well. The heart is normal in size. No right heart strain is seen. There is a prominent right lower paratracheal lymph node measuring up to 1.6 cm in the short axis, may be reactive. There is a large right pleural effusion with associated atelectasis. There is a small left pleural effusion with associated atelectasis. No pneumothorax is seen. No acute osseous abnormality is seen. Imaged portions of the upper abdomen demonstrate no acute abnormality. There is diffuse subcutaneous anasarca. IMPRESSION: 1. Marked motion artifact resulting in suboptimal evaluation. 2. Large right hilar mass, which narrows the right pulmonary bronchi and right pulmonary arteries and veins. This appears to invade the right upper lobe bronchus as well as the right and left atria. Consider tissue sampling with bronchoscopy. 3. No pulmonary embolus is seen. 4. Large right and small left pleural effusions. Diffuse anasarca. Dictated by: Dictated on workstation # [id number]
[2019-09-30] MEDS ORDERED: IOHEXOL 350 MG/ML 100 ML (OMNIPAQUE 350) VIAL IV ONE (10:45)
[2019-09-30] MEDS ORDERED: NS 100 ML (IVPB) BAG IV ONE (10:45)
[2019-09-30] MEDS ORDERED: HOLD METFORMIN - RECEIVED CONTRAST 20 ML VIAL IV SCH (10:45)
--- NOTE | 2019-09-30 12:28 | Progress Note - Hospitalist ---
Subjective HPI/CC On Admission Date Seen by Provider: Sep 30, 2019 Time Seen by Provider: 10:00 Nyasia Dunlap is a 74 year old female with PMH COPD, tobacco abuse, who presented with shortness of breath. She reports having a fall at home recently. She reports a cough. She denies fevers and chills. She denies chest pain. She denies abdominal pain, nausea, and vomiting. She denies diarrhea. She reportedly has had decreased taste and smell. She has a history of COPD, but has not been taking any medications or inhalers. She denies any history of AFib. She has smoked for over 50 years but says she quit about two weeks ago. Subjective/Events-last exam she reports feeling better today. She denies any fevers or chills. She still has a cough. She has not been eating or drinking much. Focused Exam Lactate Level 09/28/19 20:10: Lactic Acid Level 2.99*H 09/28/19 22:37: Lactic Acid Level 1.56 Time of Focused Exam: 22:30 Objective Exam Vital Signs Vital Signs Date Time Temp Pulse Resp B/P (MAP) Pulse Ox O2 Delivery O2 Flow Rate FiO2 09/30/19 11:00 87 21 100/60 (73) 99 Vapotherm 25.00 21.00 09/30/19 10:55 21 09/30/19 08:19 36.6 Capillary Refill : Less Than 3 Seconds General Appearance: No Apparent Distress, Chronically ill Respiratory: No Respiratory Distress, Decreased Breath Sounds (right side), Other (wearing nasal cannula) Cardiovascular: Regular Rate, Rhythm, No Edema, No Murmur Gastrointestinal: Normal Bowel Sounds, Non Tender, Soft Extremity: Normal Inspection, Non Tender, Pedal Edema Neurologic/Psychiatric: Alert, Oriented x3, No Motor/Sensory Deficits, Normal Mood/Affect Skin: Normal Color, Warm/Dry Results/Procedures Lab Laboratory Tests 09/30/19 05:15 Patient resulted labs reviewed. Imaging: Reviewed Imaging Report Assessment/Plan Assessment and Plan Assess & Plan/Chief Complaint Community acquired pneumonia Right lung mass Acute respiratory failure with hypoxia COPD without acute exacerbation Tobacco abuse NSTEMI, likely type II Atiral fibrillation with rapid ventricular response -No longer requiring pressors -Continue Rocephin and Azithromycin -COVID PCR negative -Continue supplemental oxygen as needed -CT Chest showed no PE, revealed right hilar mass with likely bronchial invasion -consult pulmonology for likely bronchoscopy -Hold anticoagulation -Continue Digoxin -Cardiology following, appreciate assistance Septic shock, resolved Lactic acidosis, resolved Diagnosis/Problems Diagnosis/Problems (1) Septic shock Status: Resolved Resolution Date/Time: 09/30/19 @ 12:25 (2) Right middle lobe pneumonia Status: Acute Qualifiers: Pneumonia type: due to unspecified organism Qualified Codes: J18.9 - Pneumonia, unspecified organism (3) Lactic acidosis Status: Resolved Resolution Date/Time: 09/30/19 @ 12:25 (4) Acute respiratory failure with hypoxia Status: Acute (5) NSTEMI (non-ST elevation myocardial infarction) Status: Acute (6) Atrial fibrillation with RVR Status: Acute (7) COPD exacerbation Status: Acute (8) Tobacco abuse Status: Acute (9) Mass of right lung Status: Acute Clinical Quality Measures DVT/VTE Risk/Contraindication: Risk Factor Score Per Nursin RFS Level Per Nursing on Admit: 4+=Very High CHRIS MADSEN MD Sep 30, 2019 12:28
--- NOTE | 2019-09-30 12:43 | Consultation-Cardiology ---
HPI-Cardiology Cardiology Consultation: Date of Consultation 09/30/19 Time Seen by a Provider: 12:10 Date of Admission Attending Physician Ruth Campbell MD Admitting Physician No,Local Physician Consulting Physician SOL GALVAN MD, MA, FACP, FACC, FSCAI, CCDS HPI: Chief Complaint: Reason for Cardiology consultation: A Fib HPI 74 yo woman admitted to the [facility] on 09/27/09 with gen weakness and malaise and feverish feeling and shortness of breath. Found to septic and somewhat hypotensive and in A Fib. Still feels unwell. Does not report cp or palp or syncope. Has had a productive cough (tenacious, yellowish sputum) for days/weeks. Notes mild leg swelling. Denies focal weakness or seizure Review of Systems-Cardiology Review of Systems Constitutional: As described under HPI Eyes: No vision change Ears/Nose/Throat: No ear discharge, No nasal drainage, No recent hearing loss Respiratory: As described under HPI Cardiovascular: As described under HPI Gastrointestinal: No diarrhea, No nausea, No vomiting Genitourinary: No dysuria, No hematuria, No urine frequency changes Musculoskeletal: back pain (chronic) Psychiatric/Neurological: As described under HPI Hematologic: No bleeding abnormalities All Other Systems Reviewed Negative Unless Noted: Yes (Negative excepted noted.) GBT-Llrrce-Ocgsic Hx Patient Social History Alcohol Use: Denies Use Recreational Drug Use: No Smoking Status: Current Everyday Smoker Recent Foreign Travel: No Recent Infectious Disease Expo: No Hospitalization with Isolation: Droplet Immunizations Up To Date Tetanus Booster (TDap): Unknown Past Medical History PMH As described under Assessment. Family Medical History Family Medical History: Does not report fam h/o early CAD Allergies and Home Medications Allergies Coded Allergies: No Known Drug Allergies (Unverified , 09/28/19) Patient Home Medication List Home Medication List Reviewed: Yes Physical Exam-Cardiology Physical Exam Vital Signs/I&O 09/30/19 09/30/19 09/30/19 09/30/19 01:00 01:00 02:00 02:25 Pulse 83 91 84 Resp 19 20 B/P (MAP) 100/56 (71) 99/61 (74) Pulse Ox 100 90 O2 Delivery Room Air Room Air Vapotherm O2 Flow Rate 25.00 21.00 09/30/19 09/30/19 09/30/19 09/30/19 03:00 04:00 04:00 04:07 Pulse 109 96 Resp 12 12 B/P (MAP) 104/53 (70) 96/54 (68) Pulse Ox 96 100 O2 Delivery Vapotherm Vapotherm Vapotherm Room Air O2 Flow Rate 25.00 25.00 25.00 21.00 21.00 FiO2 21 09/30/19 09/30/19 09/30/19 09/30/19 05:00 05:08 06:00 07:00 Pulse 93 96 82 Resp 16 20 B/P (MAP) 101/52 (68) 94/61 (72) Pulse Ox 96 98 O2 Delivery Room Air Vapotherm Vapotherm O2 Flow Rate 25.00 25.00 21.00 21.00 09/30/19 09/30/19 09/30/19 09/30/19 07:00 07:05 08:00 08:00 Pulse 99 107 Resp 26 10 B/P (MAP) 92/61 (71) 97/62 (74) Pulse Ox 95 95 91 92 O2 Delivery Vapotherm Vapotherm Vapotherm Vapotherm O2 Flow Rate 25.00 25.00 25.00 25.00 21.00 21.00 FiO2 21 21 09/30/19 09/30/19 09/30/19 09/30/19 08:00 08:19 09:00 10:00 Temp 36.3 36.6 Pulse 99 109 87 Resp 16 28 B/P (MAP) 100/55 (70) 96/68 (77) Pulse Ox 97 92 O2 Delivery Vapotherm Vapotherm O2 Flow Rate 25.00 25.00 21.00 21.00 09/30/19 09/30/19 09/30/19 10:55 11:00 12:00 Pulse 87 86 Resp 21 23 B/P (MAP) 100/60 (73) 106/62 (77) Pulse Ox 94 99 99 O2 Delivery Vapotherm Vapotherm Vapotherm O2 Flow Rate 20.00 25.00 25.00 21.00 21.00 FiO2 21 09/30/19 00:00 Intake Total 375 ml Output Total 300 ml Balance 75 ml Capillary Refill : Less Than 3 Seconds Constitutional: AAO x 3, well-developed, well-nourished HEENT: EOMI, hearing is well preserved; No xanthelasmas are seen Neck: carotid pulses are 2 + bilaterally Respiratory: No accessory muscle use; other (fair air entry, prolonged exp, rhonchi over large airways, coarse basal crackles) Cardiovascular: irregularly irregular, S1 and S2, systolic murmur (soft WILLIAM at card base) Gastrointestinal: No tender; soft; No guarding, No rebound; audible bowel sounds Extremities: swelling (mild, bilateral leg swelling); No clubbing, No cyanosis Neurologic/Psychiatric: alert, oriented x 3, other (moves all limbs equally) Skin: warm/dry, pallor Lymphatic: no adenopathy Data Review Labs Laboratory Tests 09/29/19 20:07: Troponin I 0.096H 09/30/19 05:15: White Blood Count 18.6H, Red Blood Count 3.14L, Hemoglobin 9.5L, Hematocrit 29L, Mean Corpuscular Volume 91, Mean Corpuscular Hemoglobin 30, Mean Corpuscular Hemoglobin Concent 33, Red Cell Distribution Width 15.9H, Platelet Count 227, Mean Platelet Volume 9.7, Neutrophils (%) (Auto) 94H, Lymphocytes (%) (Auto) 2L, Monocytes (%) (Auto) 4, Eosinophils (%) (Auto) 0, Basophils (%) (Auto) 0, Neutrophils # (Auto) 17.5H, Lymphocytes # (Auto) 0.4L, Monocytes # (Auto) 0.7, Eosinophils # (Auto) 0.0, Basophils # (Auto) 0.0, Sodium Level 135, Potassium Level 3.8, Chloride Level 106, Carbon Dioxide Level 17L, Anion Gap 12, Blood Urea Nitrogen 25H, Creatinine 0.81, Estimat Glomerular Filtration Rate > 60, BUN/Creatinine Ratio 31, Glucose Level 120H, Calcium Level 7.8L, Phosphorus Level 2.6, Magnesium Level 1.7 Microbiology 09/28/19 MRSA Screen - Final, Complete MRSA not isolated 09/28/19 Urine Culture - Final, Complete NO GROWTH 09/28/19 Blood Culture - Preliminary, Resulted No growth Laboratory Tests 09/28/19 20:10 09/29/19 04:25 09/30/19 05:15 A/P-Cardiology Assessment/Admission Diagnosis Septic shock due to community-acquired pneumonia Type 2 [place] (due to shock) PAF Chronic tobacco use COPD Anemia of undetermined age and etiology Discussion and Recomendations * Dig for vent rate control * Apixaban for stroke prophylaxis * Advised to quit smoking * Echo * Monitor labs * Other issues being managed by the [facility] Clinical Quality Measures DVT/VTE Risk/Contraindication: Risk Factor Score Per Nursin RFS Level Per Nursing on Admit: 4+=Very High SOL GALVAN MD FACP FAC CCDS Sep 30, 2019 12:43
[2019-09-30] MEDS: NOREPINEPHRINE 4 MG/250 ML 250 ML IV SCH (12:51)
[2019-09-30] MEDS: cefTRIAXone 1,000 MG/SWFI 10 ML IV PUSH IV SCH ×2 (20:20)
[2019-09-30] MEDS: AZITHROMYCIN 250 MG/NS 250 ML IVPB IV SCH ×2 (20:21)
[2019-09-30] MEDS: ACETAMINOPHEN 325 MG TABLET PO PRN (20:21)
[2019-09-30] MEDS ORDERED: APIXABAN 5 MG (ELIQUIS) TABLET PO SCH (21:00)
--- NOTE | 2019-09-30 21:38 | NUR ---
E-ICU NOTIFIED OF PT LOW URINE OUTPUT (100ML IN LAST 4 HOURS). ORDERS GIVEN. SEE ORDER HISTORY.
[2019-09-30] MEDS ORDERED: NS IV 500 ML 500 ML ONE (21:44)
[2019-09-30] MEDS ORDERED: NS IV 1000 ML 500 ML IV SCH (21:45)
[2019-09-30] MEDS: dilTIAZem DRIP PRE-MIX 125 ML IV SCH (22:39)
[2019-10-01] VITALS (24 sets, daily range): BP systolic 94–143; BP diastolic 50–82
[2019-10-01] MEDS: NS IV 1000 ML 1,000 ML IV SCH (00:43)
--- NOTE | 2019-10-01 01:13 | NUR ---
E-ICU NOTIFIED OF PT SHALLOWING BREATHING AND BEING TACHYPNEIC WITH RESPIRATIONS IN THE 30-40S. ORDERS GIVEN FOR ABG AND TO DO MORNING CHEST XRAY NOW.
[2019-10-01 01:21] LABS: ABG BASE EXCESS -4.7 MMOL/L (-2.5-2.5); ABG OXYGEN SATURATION 95 % (94-100); ABG PCO2 29 MMHG (35-45); ABG PH 7.43 (7.37-7.43); ABG PO2 70 MMHG (79-93); ABG TCO2 19.9 MMOL/L (21.0-31.0)
[2019-10-01 01:22] LABS: ALLENS TEST YES-POS
[2019-10-01 01:23] LABS: INSPIRED O2 25%; PATIENT TEMP 36.2; VENTILATOR NO
[2019-10-01] MEDS ORDERED: FUROSEMIDE 40 MG/4 ML INJ (LASIX) ONE (01:32)
[2019-10-01 01:44] LABS: BASOPHILS % (AUTO) 0 % (0-10); EOSINOPHILS % (AUTO) 0 % (0-10); HEMATOCRIT 30 % (35-52); HEMOGLOBIN 9.9 G/DL (11.5-16.0); LYMPHOCYTES # (AUTO) 0.4 X 10^3 (1.0-4.0); LYMPHOCYTES % (AUTO) 2 % (12-44); MEAN CORPUSCULAR HEMOGLOBIN 30 PG (25-34); MEAN CORPUSCULAR HGB CONC 33 G/DL (32-36); MEAN CORPUSCULAR VOLUME 91 FL (80-99); MEAN PLATELET VOLUME 9.8 FL (7.4-10.4); MONOCYTES # (AUTO) 0.8 X 10^3 (0.0-1.0); MONOCYTES % (AUTO) 4 % (0-12); NEUTROPHILS # (AUTO) 19.4 X 10^3 (1.8-7.8); NEUTROPHILS % (AUTO) 95 % (42-75); PLATELET COUNT 239 10^3/uL (130-400); RED CELL DISTRIBUTION WIDTH 16.1 % (10.0-14.5); WHITE BLOOD COUNT 20.5 10^3/uL (4.3-11.0)
[2019-10-01] MEDS ORDERED: FUROSEMIDE 40 MG/4 ML INJ (LASIX) IVP ONE (01:45)
[2019-10-01 02:09] LABS: BUN/CREATININE RATIO 30; CALCIUM 8.2 MG/DL (8.5-10.1); CARBON DIOXIDE 14 MMOL/L (21-32); CHLORIDE 109 MMOL/L (98-107); CREATININE SERUM 0.79 MG/DL (0.60-1.30); GFR ESTIMATED > 60; GLUCOSE 112 MG/DL (70-105); MAGNESIUM 1.7 MG/DL (1.6-2.4); PHOSPHORUS 2.9 MG/DL (2.3-4.7); POTASSIUM 3.8 MMOL/L (3.6-5.0); SODIUM 136 MMOL/L (135-145)
[2019-10-01] MEDS: RT-ALBUTEROL INHALER HFA (VENTOLIN HFA) 18 GM IH SCH (02:15)
--- NOTE | 2019-10-01 04:20 | Pulmonary Consultation ---
History of Present Illness History of Present Illness Date Seen by Provider: Oct 01, 2019 Time Seen by Provider: 04:15 Date of Admission History of Present Illness 74yo with hx of COPD, tobacco dependance presented to ED secondary to worsening SOB, cough, and recent fall at home. Denies f/ns/chills. No CP, abdominal pain, or n/v/d. Allergies and Home Medications Allergies Coded Allergies: No Known Drug Allergies (Unverified , 09/28/19) Past Nuwdlxe-Gohtrd-Qagqiw Hx Past Med/Social Hx: Reviewed Nursing Past Med/Soc Hx Patient Social History Alcohol Use: Denies Use Recreational Drug Use: No Smoking Status: Current Everyday Smoker Recent Foreign Travel: No Contact w/Someone Who Travel: No Recent Infectious Disease Expo: No Recent Hopitalizations: No Immunizations Up To Date Tetanus Booster (TDap): Unknown Seasonal Allergies Seasonal Allergies: No Past Medical History Surgeries: Yes Appendectomy Respiratory: Yes COPD Cardiac: No Neurological: No Genitourinary: No Gastrointestinal: No Musculoskeletal: No Endocrine: No HEENT: No Cancer: No Psychosocial: No Integumentary: No Blood Disorders: No Family Medical History No Pertinent Family Hx Review of Systems Time Seen by Provider: 04:29 Sepsis Event Evaluation Height, Weight, BMI Height: '" Weight: lbs. oz. kg; 25.42 BMI Method: Exam Exam Vital Signs Date Time Temp Pulse Resp B/P (MAP) Pulse Ox O2 Delivery O2 Flow Rate FiO2 10/01/19 03:00 96 24 119/63 (81) 92 Vapotherm 20.00 21.00 10/01/19 03:00 92 Vapotherm 20.00 21 10/01/19 03:00 36.2 10/01/19 02:21 85 27 94 Vapotherm 20.00 21.00 10/01/19 02:15 97 Vapotherm 20.00 25 10/01/19 02:00 94 28 104/74 (84) 96 Vapotherm 20.00 25.00 10/01/19 01:00 96 10/01/19 01:00 96 24 122/63 (82) 97 Vapotherm 20.00 25.00 10/01/19 00:00 81 120/69 (86) 95 Vapotherm 20.00 25.00 09/30/19 23:25 92 Vapotherm 20.00 21 09/30/19 23:23 36.0 09/30/19 23:00 80 20 115/64 (81) 97 Vapotherm 20.00 25.00 09/30/19 22:00 83 23 116/68 (84) 99 Vapotherm 20.00 25.00 09/30/19 21:58 92 24 98 Vapotherm 20.00 25.00 09/30/19 21:53 97 Vapotherm 20.00 35 09/30/19 21:00 93 108/61 (77) 94 Vapotherm 20.00 35.00 09/30/19 20:00 90 32 114/68 (83) 96 Vapotherm 20.00 35.00 09/30/19 20:00 92 Vapotherm 25.00 21 09/30/19 20:00 36.0 09/30/19 19:50 89 33 100 Vapotherm 20.00 35.00 09/30/19 19:42 95 Vapotherm 20.00 21 09/30/19 19:00 86 24 105/57 (73) 98 Vapotherm 20.00 21.00 09/30/19 19:00 86 09/30/19 18:00 94 31 113/66 (82) 93 Vapotherm 25.00 21.00 09/30/19 17:00 99 18 126/76 (93) 92 Vapotherm 25.00 21.00 09/30/19 16:00 92 Vapotherm 25.00 21 09/30/19 16:00 91 20 111/70 (84) 96 Vapotherm 25.00 21.00 09/30/19 15:00 80 18 116/63 (80) 96 Vapotherm 25.00 21.00 09/30/19 14:40 94 Vapotherm 20.00 21 09/30/19 14:00 90 29 104/62 (76) 95 Vapotherm 25.00 21.00 09/30/19 13:00 93 34 106/63 (77) 95 Vapotherm 25.00 21.00 09/30/19 12:38 88 09/30/19 12:00 92 Vapotherm 25.00 21 09/30/19 12:00 86 23 106/62 (77) 99 Vapotherm 25.00 21.00 09/30/19 11:00 87 21 100/60 (73) 99 Vapotherm 25.00 21.00 09/30/19 10:55 94 Vapotherm 20.00 21 09/30/19 10:00 87 28 96/68 (77) 92 Vapotherm 25.00 21.00 09/30/19 09:00 109 16 100/55 (70) 97 Vapotherm 25.00 21.00 09/30/19 08:19 36.6 99 09/30/19 08:00 36.3 09/30/19 08:00 92 Vapotherm 25.00 21 09/30/19 08:00 107 10 97/62 (74) 91 Vapotherm 25.00 21.00 09/30/19 07:05 95 Vapotherm 25.00 21 09/30/19 07:00 99 26 92/61 (71) 95 Vapotherm 25.00 21.00 09/30/19 07:00 82 09/30/19 06:00 96 20 94/61 (72) 98 Vapotherm 25.00 21.00 09/30/19 05:08 Vapotherm 25.00 21.00 09/30/19 05:00 93 16 101/52 (68) 96 Room Air I & O 10/01/19 07:00 Intake Total 1990 ml Output Total 475 ml Balance 1515 ml Height & Weight Height: '" Weight: lbs. oz. kg; 25.42 BMI Method: General Appearance: No Apparent Distress, Chronically ill HEENT: PERRL/EOMI, Pharynx Normal Neck: Normal Inspection, Supple Respiratory: No Respiratory Distress, Decreased Breath Sounds (right side), Other (wearing nasal cannula) Cardiovascular: Regular Rate, Rhythm, No Edema, No Murmur Capillary Refill: Less Than 3 Seconds Gastrointestinal: non tender, soft Extremity: Normal Inspection, Non Tender, Pedal Edema Neurologic/Psychiatric: Alert, Oriented x3, No Motor/Sensory Deficits, Normal Mood/Affect Skin: Normal Color, Warm/Dry Lymphatic: No Adenopathy Results Lab Laboratory Tests 09/29/19 04:25 09/30/19 05:15 10/01/19 01:34 Assessment/Plan Assessment/Plan Acute on chronic respiratory failure CAP with sepsis -Currently on Rocephin and Azithromycin -IVF Hypotension - Now improved Right lung mass RUL with bulky lymphadenopathy -PT needs bronchoscopy with EBUS. Will schedule for this week. COPD - currently stable Tobacco dependace NSTEMI -Cardiology is following GENNARO BARBOSA DO Oct 01, 2019 04:20
[2019-10-01] MEDS: RT-ALBUTEROL/IPRATROPIUM 3 ML (DUONEB) VIAL INH SCH ×5 (06:11→22:07)
[2019-10-01] MEDS: LORazepam INJ 2 MG/ML (ATIVAN) VIAL IVP PRN ×3 (06:26→20:25)
--- NOTE | 2019-10-01 06:30 | Diagnostic Imaging Report ---
INDICATION: Dyspnea COMPARISON STUDY: Chest from yesterday. FINDINGS: Portable upright view of the chest demonstrates slight increase of the right pleural effusion. Right hilar mass and atelectasis is again identified. Minimal atelectasis in the left base is again identified. The vascularity is normal. IMPRESSION: There has been some increase of the right pleural effusion since yesterday. Atelectasis and the right hilar mass are stable. Dictated by: Dictated on workstation # [id number]
[2019-10-01] MEDS: DIGOXIN 0.25 MG (LANOXIN) TAB PO SCH (07:33)
[2019-10-01] MEDS: ENOXAPARIN 60 MG/0.6 ML (LOVENOX) SYR SC SCH ×2 (07:34→20:25)
--- NOTE | 2019-10-01 08:41 | Progress Note - Hospitalist ---
Subjective HPI/CC On Admission Date Seen by Provider: Oct 01, 2019 Time Seen by Provider: 08:33 Nyasia Dunlap is a 74 year old female with PMH COPD, tobacco abuse, who presented with shortness of breath. She reports having a fall at home recently. She reports a cough. She denies fevers and chills. She denies chest pain. She denies abdominal pain, nausea, and vomiting. She denies diarrhea. She reportedly has had decreased taste and smell. She has a history of COPD, but has not been taking any medications or inhalers. She denies any history of AFib. She has smoked for over 50 years but says she quit about two weeks ago. Subjective/Events-last exam Pt reports doing better this morning. Was very short of breath overnight. Given Lasix this AM and breathing better. Discussed with RN who states patient is unsu re about treatment options she would want if this is cancer. RN placed palliative care consult. Focused Exam Lactate Level 09/28/19 20:10: Lactic Acid Level 2.99*H 09/28/19 22:37: Lactic Acid Level 1.56 Time of Focused Exam: 22:30 Objective Exam Vital Signs Vital Signs Date Time Temp Pulse Resp B/P (MAP) Pulse Ox O2 Delivery O2 Flow Rate FiO2 10/01/19 08:00 111 43 106/68 (81) 91 Vapotherm 20.00 21.00 10/01/19 07:00 36.3 10/01/19 06:11 21 Capillary Refill : Less Than 3 Seconds General Appearance: No Apparent Distress, Chronically ill Respiratory: No Accessory Muscle Use, Decreased Breath Sounds, Other (on vapotherm) Cardiovascular: Irregularly Irregular (normal rate) Gastrointestinal: Normal Bowel Sounds, Non Tender, Soft Genital/Rectal: Other (catheter in place) Neurologic/Psychiatric: Alert, Oriented x3, Normal Mood/Affect Results/Procedures Lab Laboratory Tests 10/01/19 01:34 Patient resulted labs reviewed. Imaging: Reviewed Imaging Report Assessment/Plan Assessment and Plan Assess & Plan/Chief Complaint Community acquired pneumonia Right lung mass Acute respiratory failure with hypoxia COPD without acute exacerbation Tobacco abuse NSTEMI, likely type II Atiral fibrillation with rapid ventricular response- RVR resolved -Continue Rocephin and Azithromycin -COVID PCR negative -Continue Vapotherm, wean as able - Lasix given this AM -CT Chest showed no PE, revealed right hilar mass with likely bronchial invasion -consult pulmonology for likely bronchoscopy, discussed with Dr Lucas who will plan for it this week if patient agreeable -Continue Lovenox, until bronchoscopy scheduled -Continue Digoxin -Cardiology following, appreciate assistance -palliative care consult placed Septic shock, resolved Lactic acidosis, resolved Diagnosis/Problems Diagnosis/Problems (1) Mass of right lung Status: Acute (2) Lactic acidosis Status: Resolved Resolution Date/Time: 09/30/19 @ 12:25 (3) Septic shock Status: Resolved Resolution Date/Time: 09/30/19 @ 12:25 (4) Acute respiratory failure with hypoxia Status: Acute (5) NSTEMI (non-ST elevation myocardial infarction) Status: Acute (6) Right middle lobe pneumonia Status: Acute Qualifiers: Pneumonia type: due to unspecified organism Qualified Codes: J18.9 - Pneumonia, unspecified organism (7) Atrial fibrillation with RVR Status: Acute (8) Tobacco abuse Status: Acute Clinical Quality Measures DVT/VTE Risk/Contraindication: Risk Factor Score Per Nursin RFS Level Per Nursing on Admit: 4+=Very High DANIELA CHACON MD Oct 01, 2019 08:41
[2019-10-01] MEDS: ADVAIR HFA 115/21 MCG INHALER 8 GM IH SCH ×2 (09:49→18:42)
--- NOTE | 2019-10-01 10:56 | NUR ---
SPOKE WITH THE PT TO COMPLETE THE MED REC PT DENIES TAKING ANY PRESCRIPTION OR OTC MEDICATIONS WHEN I ASKED HER ABOUT A PREFERRED PHARMACY SHE DIDNT KNOW AND DIDNT WANT TO NAME A PHARMACY AND SAID SHE WASNT GETTING ANY BETTER AND DIDNT SEE THE POINT. I EXPLAINED TO HER THE REASONS WHY AND TOLD HER TO THINK ABOUT IT AND LET US KNOW WHEN SHE IS BEING DISCHARGED
--- NOTE | 2019-10-01 12:03 | NUR ---
Palliative Care RN in to see patient. She is laying in her bed with her eyes closed upon entering the room. She responds while eyes are still closed and says 'I didn't sleep well last night, so I am taking the day off", and will not discuss her options currently Will try again at another time.
--- NOTE | 2019-10-01 14:20 | NUR ---
"RD ASSESSMENT PMHx: COPD; tobacco abuse PT INTERACTION: Pt was semi-awake and pleasant during nutrition assessment. Pt states current appetite is poor. Note avg PO intake 25-50% x2d, per chart review. Pt states following a regular diet at home, and has no issues with chewing/swallowing food. Pt states no recent issues with nausea, vomiting, constipation, or diarrhea, and that her last BM was 09/23. Note pt not currently on bowel regimen per chart review. Pt states recent wt loss, but unsure of amount/timeframe. Note unable to determine recent wt hx, per chart review. ABNORMAL NUTRITION-RELATED LAB VALUES LOW: Ca 8.2; HIGH: Cl 109; BUN 24; glu 112 Est. kcal needs: 1575 kcal | 25 kcal/kg Est. Pro needs: 51 g Pro | 0.8 g Pro/kg PES STATEMENT: Inadequate oral intake (NI-2.1) related to loss of appetite as evidenced by pt interview | avg PO intake 25-50% x2d INTERVENTION: Continue with current diet order of Regular diet. Pt may benefit from nutrition supplementation if PO intake remains low. Pt may benefit from more aggressive bowel regimen if constipation persists. Encouraged pt to eat when able. Will continue to follow and reassess as pt needs, intake, and status change. MONITOR/EVALUATE: PO Intake; Plan of Care; Hydration Status; Weight Status; Lab Values Clau [place], , RD, LD"
--- NOTE | 2019-10-01 16:12 | Progress Note - Cardiology ---
Cardiology SOAP Progress Note Subjective: Reports gen weakness and malaise. Does not feel well Shortness of breath with activity No cp No palp or syncope No n/v/d Objective: I&O/Vital Signs 10/01/19 10/01/19 10/01/19 10/01/19 05:00 06:00 06:11 06:51 Pulse 89 89 93 Resp 34 31 B/P (MAP) 115/69 (84) 114/65 (81) Pulse Ox 95 93 92 O2 Delivery Vapotherm Vapotherm Vapotherm O2 Flow Rate 20.00 20.00 20.00 21.00 21.00 FiO2 21 10/01/19 10/01/19 10/01/19 10/01/19 07:00 08:00 08:00 09:00 Temp 36.3 Pulse 98 111 96 Resp 34 43 34 B/P (MAP) 118/72 (87) 106/68 (81) 97/65 (76) Pulse Ox 92 91 92 92 O2 Delivery Vapotherm Vapotherm Vapotherm Vapotherm O2 Flow Rate 20.00 20.00 15.00 20.00 21.00 21.00 21.00 FiO2 21 10/01/19 10/01/19 10/01/19 10/01/19 09:50 10:00 11:00 12:00 Pulse 90 83 Resp 26 25 B/P (MAP) 119/62 (81) 111/62 (78) Pulse Ox 95 93 92 92 O2 Delivery Vapotherm Vapotherm Vapotherm Vapotherm O2 Flow Rate 15.00 20.00 20.00 15.00 21.00 21.00 FiO2 21 21 10/01/19 10/01/19 10/01/19 10/01/19 12:00 12:48 13:00 13:00 Temp 36.4 Pulse 93 86 92 Resp 24 37 B/P (MAP) 110/68 (82) 111/68 (82) Pulse Ox 92 94 O2 Delivery Vapotherm Vapotherm O2 Flow Rate 20.00 20.00 21.00 21.00 10/01/19 10/01/19 10/01/19 14:00 14:40 15:00 Pulse 97 85 Resp 28 27 B/P (MAP) 113/71 (85) 109/64 (79) Pulse Ox 91 92 92 O2 Delivery Vapotherm Vapotherm Vapotherm O2 Flow Rate 20.00 15.00 20.00 21.00 21.00 FiO2 21 10/01/19 00:00 Intake Total 650 ml Output Total 300 ml Balance 350 ml Constitutional: AAO x 3, well-developed, well-nourished Respiratory: No accessory muscle use; other (fair air entry, prolonged exp, rhonchi over large airways, coarse basal crackles) Cardiovascular: irregularly irregular, S1 and S2, systolic murmur (soft WILLIAM at card base) Gastrointestional: No tender; soft; No guarding, No rebound; audible bowel sounds Extremities: swelling (mild, bilateral leg swelling); No clubbing, No cyanosis Neurologic/Psychiatric: alert, oriented x 3, other (moves all limbs equally) Skin: warm/dry, pallor Results/Procedures: Labs Laboratory Tests 10/01/19 01:09: Blood Gas Puncture Site RIGHT RADIAL, Blood Gas Patient Temperature 36.2, Arterial Blood pH 7.43, Arterial Blood Partial Pressure CO2 29L, Arterial Blood Partial Pressure O2 70L, Arterial Blood HCO3 19L, Arterial Blood Total CO2 19.9L , Arterial Blood Oxygen Saturation 95, Arterial Blood Base Excess -4.7L, Angel Test YES-POS, Blood Gas Ventilator Setting NO, Blood Gas Inspired Oxygen 25% 10/01/19 01:34: White Blood Count 20.5H, Red Blood Count 3.28L, Hemoglobin 9.9L, Hematocrit 30L, Mean Corpuscular Volume 91, Mean Corpuscular Hemoglobin 30, Mean Corpuscular Hemoglobin Concent 33, Red Cell Distribution Width 16.1H, Platelet Count 239, Mean Platelet Volume 9.8, Neutrophils (%) (Auto) 95H, Lymphocytes (%) (Auto) 2L, Monocytes (%) (Auto) 4, Eosinophils (%) (Auto) 0, Basophils (%) (Auto) 0, Neutrophils # (Auto) 19.4H, Lymphocytes # (Auto) 0.4L, Monocytes # (Auto) 0.8, Eosinophils # (Auto) 0.0, Basophils # (Auto) 0.0, Sodium Level 136, Potassium Level 3.8, Chloride Level 109H, Carbon Dioxide Level 14L, Anion Gap 13, Blood Urea Nitrogen 24H, Creatinine 0.79, Estimat Glomerular Filtration Rate > 60, BUN/Creatinine Ratio 30, Glucose Level 112H, Calcium Level 8.2L, Phosphorus Level 2.9, Magnesium Level 1.7, B-Type Natriuretic Peptide 774.5H, Procalcitonin 0.20H, Digoxin Level 1.24 Microbiology 09/28/19 MRSA Screen - Final, Complete MRSA not isolated 09/28/19 Urine Culture - Final, Complete NO GROWTH 09/28/19 Blood Culture - Preliminary, Resulted No growth Laboratory Tests 09/30/19 05:15 10/01/19 01:34 A/P: Assessment: Septic shock due to community-acquired pneumonia, improving Type 2 OK (due to shock) R hilar mass of undetermined etiology PAF Chronic tobacco use COPD Anemia of undetermined age and etiology Plan: * Continue dig for vent rate control and apixaban for stroke prophylaxis * Advised to quit smoking * Monitor labs * Other issues being managed by the [facility] Clinical Quality Measures Type of Care: Type of Care: Pallative Care SOL GALVAN MD FACP FAC CCDS Oct 01, 2019 16:12
[2019-10-01] MEDS: cefTRIAXone 1,000 MG/SWFI 10 ML IV PUSH IV SCH ×2 (20:24)
[2019-10-01] MEDS: AZITHROMYCIN 250 MG/NS 250 ML IVPB IV SCH ×2 (20:24)
--- NOTE | 2019-10-01 21:45 | NUR ---
PT C/O GENERALIZED PAIN THAT SHE STATES STARTED ABOUT A DAY AGO, PT RATES THE PAIN AT A 9 ON A 0-10 SCALE. THIS RN NOTIFIED E-ICU AND RECEIVED NEW ORDERS AT THIS TIME.
[2019-10-01] MEDS ORDERED: morphine INJ 4 MG/ML 1 ML (VIAL/SYRINGE) ONE (21:47)
[2019-10-01] MEDS ORDERED: morphine INJ 4 MG/ML 1 ML (VIAL/SYRINGE) IVP PRN (22:00)
[2019-10-02] VITALS (24 sets, daily range): BP systolic 80–128; BP diastolic 43–103
[2019-10-02 02:04] LABS: BASOPHILS % (AUTO) 0 % (0-10); EOSINOPHILS % (AUTO) 0 % (0-10); HEMATOCRIT 30 % (35-52); LYMPHOCYTES # (AUTO) 0.3 X 10^3 (1.0-4.0); LYMPHOCYTES % (AUTO) 1 % (12-44); MEAN CORPUSCULAR HEMOGLOBIN 30 PG (25-34); MEAN CORPUSCULAR HGB CONC 33 G/DL (32-36); MEAN CORPUSCULAR VOLUME 91 FL (80-99); MEAN PLATELET VOLUME 9.9 FL (7.4-10.4); MONOCYTES # (AUTO) 1.4 X 10^3 (0.0-1.0); MONOCYTES % (AUTO) 6 % (0-12); NEUTROPHILS # (AUTO) 21.3 X 10^3 (1.8-7.8); NEUTROPHILS % (AUTO) 93 % (42-75); PLATELET COUNT 220 10^3/uL (130-400); RED CELL DISTRIBUTION WIDTH 16.7 % (10.0-14.5); WHITE BLOOD COUNT 23.1 10^3/uL (4.3-11.0)
[2019-10-02] MEDS: RT-ALBUTEROL/IPRATROPIUM 3 ML (DUONEB) VIAL INH SCH ×6 (02:13→20:45)
[2019-10-02 02:16] LABS: BUN/CREATININE RATIO 32; CALCIUM 8.6 MG/DL (8.5-10.1); CARBON DIOXIDE 17 MMOL/L (21-32); CHLORIDE 107 MMOL/L (98-107); CREATININE SERUM 0.78 MG/DL (0.60-1.30); GFR ESTIMATED > 60; GLUCOSE 107 MG/DL (70-105); MAGNESIUM 1.8 MG/DL (1.6-2.4); PHOSPHORUS 2.8 MG/DL (2.3-4.7); POTASSIUM 3.4 MMOL/L (3.6-5.0); SODIUM 137 MMOL/L (135-145)
--- NOTE | 2019-10-02 05:41 | Pulmonary Progress Note ---
Subjective Time Seen by a Provider: 05:41 Sepsis Event Evaluation Height, Weight, BMI Height: '" Weight: lbs. oz. kg; 25.42 BMI Method: Focused Exam Time of Focused Exam: 22:30 Exam Exam Vital Signs Date Time Temp Pulse Resp B/P (MAP) Pulse Ox O2 Delivery O2 Flow Rate FiO2 10/02/19 04:00 Vapotherm 15.00 21 10/02/19 04:00 36.7 10/02/19 03:00 84 29 94/48 (63) 95 Vapotherm 15.00 21.00 10/02/19 02:13 96 Vapotherm 15.00 21 10/02/19 02:00 86 26 98/52 (67) Vapotherm 15.00 21.00 10/02/19 01:00 81 30 100/50 (67) 100 Vapotherm 15.00 21.00 10/02/19 01:00 81 10/02/19 00:00 36.6 10/02/19 00:00 81 26 94/50 (65) 99 Vapotherm 15.00 21.00 10/02/19 00:00 6 Vapotherm 15.00 21 10/01/19 23:00 82 21 94/50 (65) 97 Vapotherm 15.00 21.00 10/01/19 22:07 98 Vapotherm 15.00 21 10/01/19 22:00 88 32 98/51 (67) 96 Vapotherm 15.00 21.00 10/01/19 21:00 89 111/62 (78) 94 Vapotherm 15.00 21.00 10/01/19 20:15 86 31 107/64 (78) 92 Vapotherm 15.00 21.00 10/01/19 20:00 6 Vapotherm 15.00 21 10/01/19 20:00 36.6 10/01/19 19:00 85 10/01/19 19:00 85 35 143/78 (99) 91 Vapotherm 15.00 21.00 10/01/19 18:42 95 Vapotherm 15.00 21 10/01/19 18:00 79 31 110/59 (76) 95 Vapotherm 20.00 21.00 10/01/19 17:00 78 24 111/61 (78) 93 Vapotherm 20.00 21.00 10/01/19 16:00 36.6 10/01/19 16:00 91 20 98/60 (73) 92 Vapotherm 20.00 21.00 10/01/19 16:00 93 Vapotherm 15.00 21 10/01/19 15:00 85 27 109/64 (79) 92 Vapotherm 20.00 21.00 10/01/19 14:40 92 Vapotherm 15.00 21 10/01/19 14:00 97 28 113/71 (85) 91 Vapotherm 20.00 21.00 10/01/19 13:00 36.4 10/01/19 13:00 92 37 111/68 (82) 94 Vapotherm 20.00 21.00 10/01/19 12:48 86 10/01/19 12:00 93 24 110/68 (82) 92 Vapotherm 20.00 21.00 10/01/19 12:00 92 Vapotherm 15.00 21 10/01/19 11:00 83 25 111/62 (78) 92 Vapotherm 20.00 21.00 10/01/19 10:00 90 26 119/62 (81) 93 Vapotherm 20.00 21.00 10/01/19 09:50 95 Vapotherm 15.00 21 10/01/19 09:00 96 34 97/65 (76) 92 Vapotherm 20.00 21.00 10/01/19 08:00 92 Vapotherm 15.00 21 10/01/19 08:00 111 43 106/68 (81) 91 Vapotherm 20.00 21.00 10/01/19 07:00 36.3 98 34 118/72 (87) 92 Vapotherm 20.00 21.00 10/01/19 06:51 93 10/01/19 06:11 92 Vapotherm 20.00 21 10/01/19 06:00 89 31 114/65 (81) 93 Vapotherm 20.00 21.00 I & O 10/02/19 07:00 Intake Total 300 ml Output Total 1160 ml Balance -860 ml Height & Weight Height: '" Weight: lbs. oz. kg; 25.42 BMI Method: General Appearance: No Apparent Distress, Chronically ill HEENT: PERRL/EOMI, Pharynx Normal Neck: Normal Inspection, Supple Respiratory: No Accessory Muscle Use, Decreased Breath Sounds, Other (on vapotherm) Cardiovascular: Irregularly Irregular (normal rate) Capillary Refill: Less Than 3 Seconds Gastrointestinal: non tender, soft Extremity: Normal Inspection, Non Tender, Pedal Edema Neurologic/Psychiatric: Alert, Oriented x3, Normal Mood/Affect Skin: Normal Color, Warm/Dry Lymphatic: No Adenopathy Results Lab Laboratory Tests 10/01/19 01:34 10/02/19 01:45 Assessment/Plan Assessment/Plan Acute on chronic respiratory failure CAP with sepsis -Currently on Rocephin and Azithromycin -IVF Hypotension - Now improved Right lung mass RUL with bulky lymphadenopathy -PT needs bronchoscopy with EBUS. Will schedule for this week. COPD - currently stable Tobacco dependace NSTEMI -Cardiology is following GENNARO BARBOSA DO Oct 02, 2019 05:41
[2019-10-02] MEDS ORDERED: LACTATED RINGERS 1,000 ML IV ONE ×3 (06:18→21:37)
[2019-10-02] MEDS ORDERED: LACTATED RINGERS 1,000 ML IV SCH ×3 (06:30→23:00)
[2019-10-02] MEDS ORDERED: LACTATED RINGERS 500 ML IV ONE (06:30)
[2019-10-02 06:43] LABS: ABG BASE EXCESS -0.7 MMOL/L (-2.5-2.5); ABG OXYGEN SATURATION 61 % (94-100); ABG PCO2 37 MMHG (35-45); ABG PH 7.41 (7.37-7.43); ABG TCO2 24.5 MMOL/L (21.0-31.0)
--- NOTE | 2019-10-02 06:43 | Pulmonary Progress Note ---
Subjective Time Seen by a Provider: 06:38 Subjective/Events-last exam Pt appears lethargic but alert. Sepsis Event Evaluation Height, Weight, BMI Height: '" Weight: lbs. oz. kg; 25.42 BMI Method: Focused Exam Time of Focused Exam: 22:30 Exam Exam Vital Signs Date Time Temp Pulse Resp B/P (MAP) Pulse Ox O2 Delivery O2 Flow Rate FiO2 10/02/19 04:00 Vapotherm 15.00 21 10/02/19 04:00 36.7 10/02/19 03:00 84 29 94/48 (63) 95 Vapotherm 15.00 21.00 10/02/19 02:13 96 Vapotherm 15.00 21 10/02/19 02:00 86 26 98/52 (67) Vapotherm 15.00 21.00 10/02/19 01:00 81 30 100/50 (67) 100 Vapotherm 15.00 21.00 10/02/19 01:00 81 10/02/19 00:00 36.6 10/02/19 00:00 81 26 94/50 (65) 99 Vapotherm 15.00 21.00 10/02/19 00:00 6 Vapotherm 15.00 21 10/01/19 23:00 82 21 94/50 (65) 97 Vapotherm 15.00 21.00 10/01/19 22:07 98 Vapotherm 15.00 21 10/01/19 22:00 88 32 98/51 (67) 96 Vapotherm 15.00 21.00 10/01/19 21:00 89 111/62 (78) 94 Vapotherm 15.00 21.00 10/01/19 20:15 86 31 107/64 (78) 92 Vapotherm 15.00 21.00 10/01/19 20:00 6 Vapotherm 15.00 21 10/01/19 20:00 36.6 10/01/19 19:00 85 10/01/19 19:00 85 35 143/78 (99) 91 Vapotherm 15.00 21.00 10/01/19 18:42 95 Vapotherm 15.00 21 10/01/19 18:00 79 31 110/59 (76) 95 Vapotherm 20.00 21.00 10/01/19 17:00 78 24 111/61 (78) 93 Vapotherm 20.00 21.00 10/01/19 16:00 36.6 10/01/19 16:00 91 20 98/60 (73) 92 Vapotherm 20.00 21.00 10/01/19 16:00 93 Vapotherm 15.00 21 10/01/19 15:00 85 27 109/64 (79) 92 Vapotherm 20.00 21.00 10/01/19 14:40 92 Vapotherm 15.00 21 10/01/19 14:00 97 28 113/71 (85) 91 Vapotherm 20.00 21.00 10/01/19 13:00 36.4 10/01/19 13:00 92 37 111/68 (82) 94 Vapotherm 20.00 21.00 10/01/19 12:48 86 10/01/19 12:00 93 24 110/68 (82) 92 Vapotherm 20.00 21.00 10/01/19 12:00 92 Vapotherm 15.00 21 10/01/19 11:00 83 25 111/62 (78) 92 Vapotherm 20.00 21.00 10/01/19 10:00 90 26 119/62 (81) 93 Vapotherm 20.00 21.00 10/01/19 09:50 95 Vapotherm 15.00 21 10/01/19 09:00 96 34 97/65 (76) 92 Vapotherm 20.00 21.00 10/01/19 08:00 92 Vapotherm 15.00 21 10/01/19 08:00 111 43 106/68 (81) 91 Vapotherm 20.00 21.00 10/01/19 07:00 36.3 98 34 118/72 (87) 92 Vapotherm 20.00 21.00 10/01/19 06:51 93 I & O 10/02/19 07:00 Intake Total 300 ml Output Total 1160 ml Balance -860 ml Height & Weight Height: '" Weight: lbs. oz. kg; 25.42 BMI Method: General Appearance: Chronically ill, Mild Distress HEENT: PERRL/EOMI, Pharynx Normal Neck: Normal Inspection, Supple Respiratory: No Accessory Muscle Use, Decreased Breath Sounds, Other (on vapotherm) Cardiovascular: Irregularly Irregular (normal rate) Capillary Refill: Less Than 3 Seconds Gastrointestinal: non tender, soft Extremity: Normal Inspection, Non Tender, Pedal Edema Neurologic/Psychiatric: Alert, Normal Mood/Affect Skin: Normal Color, Warm/Dry Lymphatic: No Adenopathy Results Lab Laboratory Tests 10/01/19 01:34 10/02/19 01:45 Assessment/Plan Assessment/Plan Acute on chronic respiratory failure CAP with sepsis -Currently on Rocephin and Azithromycin -Change to Zosyn and repeat weldon cultures. Hypotension - -Give 500 cc bolus x 1 Right lung mass RUL with bulky lymphadenopathy -PT needs bronchoscopy with EBUS. Will schedule for Tuesday. Hypokalemia -replace COPD - currently stable Tobacco dependace NSTEMI -Cardiology is following GENNARO BARBOSA DO Oct 02, 2019 06:43
[2019-10-02 06:47] LABS: ABG PO2 37 MMHG (79-93); ALLENS TEST YES-POS
[2019-10-02 06:48] LABS: INSPIRED O2 21%; PATIENT TEMP 36.5; VENTILATOR NO
[2019-10-02] MEDS ORDERED: PIPERACILLIN/TAZO 4.5 GM/NS 100 ML IV NR ×2 (07:00)
[2019-10-02] MEDS: POTASSIUM CL 10MEQ/50ML IVPB 50 ML IV SCH ×4 (07:06→08:18)
[2019-10-02] MEDS: ADVAIR HFA 115/21 MCG INHALER 8 GM IH SCH ×2 (07:31→20:47)
--- NOTE | 2019-10-02 07:58 | Diagnostic Imaging Report ---
INDICATION: Dyspnea. TECHNIQUE: Single view chest 3:14 AM. CORRELATION STUDY: 10/01/2019 FINDINGS: Moderate sized right pleural effusion along with consolidation the right lower lung field does persist overall generally stable. Only small amount of pneumatized right upper lung field. There is some minimal infiltrate at the left lung base along small left pleural effusion. Heart size and mediastinal structures are largely obscured but generally stable. IMPRESSION: 1. Moderately large right pleural effusion along with some consolidation at the right lung base appears unchanged. This again obscures a known right hilar mass. Minimal atelectasis or infiltrate and effusion at the left lung base. Dictated by: Dictated on workstation # [id number]
[2019-10-02] MEDS: DIGOXIN 0.25 MG (LANOXIN) TAB PO SCH (08:17)
[2019-10-02 08:30] LABS: BILIRUBIN,URINE NEGATIVE (NEGATIVE); CLARITY,URINE CLEAR; COLOR,URINE YELLOW; GLUCOSE, URINE (UA) NEGATIVE (NEGATIVE); KETONES,URINE TRACE (NEGATIVE); LEUKOCYTE ESTERASE ,URINE NEGATIVE (NEGATIVE); NITRITE,URINE NEGATIVE (NEGATIVE); PH,URINE 5.5 (5-9); PROTEIN,URINE TRACE (NEGATIVE)
[2019-10-02 08:39] LABS: BACTERIA,URINE NEGATIVE /HPF; URIC ACID CRYSTALS,URINE RARE /LPF; WBC,URINE 0-2 /HPF
--- NOTE | 2019-10-02 10:13 | Progress Note - Hospitalist ---
Subjective HPI/CC On Admission Date Seen by Provider: Oct 02, 2019 Time Seen by Provider: 10:09 Nyasia Dunlap is a 74 year old female with PMH COPD, tobacco abuse, who presented with shortness of breath. She reports having a fall at home recently. She reports a cough. She denies fevers and chills. She denies chest pain. She denies abdominal pain, nausea, and vomiting. She denies diarrhea. She reportedly has had decreased taste and smell. She has a history of COPD, but has not been taking any medications or inhalers. She denies any history of AFib. She has smoked for over 50 years but says she quit about two weeks ago. Subjective/Events-last exam Pt reports doing ok today. Breathing is sometimes better and sometimes worse per patient. Discussed plan for bronch tomorrow and if she was still in agreement a nd she states "I guess." She did state she would like to talk to Luis Enrique with palliative care today. Focused Exam Time of Focused Exam: 22:30 Objective Exam Vital Signs Vital Signs Date Time Temp Pulse Resp B/P (MAP) Pulse Ox O2 Delivery O2 Flow Rate FiO2 10/02/19 09:00 92 38 103/56 (72) 93 Vapotherm 15.00 21.00 10/02/19 08:00 21 10/02/19 07:12 35.9 Capillary Refill : Less Than 3 Seconds General Appearance: No Apparent Distress, Chronically ill Respiratory: No Accessory Muscle Use, Decreased Breath Sounds; No Wheezing; Other (on vapotherm) Cardiovascular: Regular Rate, Rhythm, No Murmur Gastrointestinal: Normal Bowel Sounds, Non Tender, Soft Extremity: No Calf Tenderness, No Pedal Edema, Other (upper extremity edema) Neurologic/Psychiatric: Alert, Oriented x3, Normal Mood/Affect Results/Procedures Lab Laboratory Tests 10/02/19 01:45 Patient resulted labs reviewed. Imaging: Reviewed Imaging Report Assessment/Plan Assessment and Plan Assess & Plan/Chief Complaint Community acquired pneumonia Right lung mass Acute respiratory failure with hypoxia COPD without acute exacerbation Tobacco abuse NSTEMI, likely type II Atiral fibrillation with rapid ventricular response- RVR resolved -Switch to Zosyn -COVID PCR negative -Continue Vapotherm, wean as able -CT Chest showed no PE, revealed right hilar mass with likely bronchial invasion -consult pulmonology for likely bronchoscopy, discussed with Dr Lucas, plan for bronch tomorrow -Lovenox held for bronch -Continue Digoxin -Cardiology following, appreciate assistance -palliative care consult placed Septic shock, resolved Lactic acidosis, resolved Diagnosis/Problems Diagnosis/Problems (1) Mass of right lung Status: Acute (2) Lactic acidosis Status: Resolved Resolution Date/Time: 09/30/19 @ 12:25 (3) Septic shock Status: Resolved Resolution Date/Time: 09/30/19 @ 12:25 (4) Acute respiratory failure with hypoxia Status: Acute (5) NSTEMI (non-ST elevation myocardial infarction) Status: Acute (6) Right middle lobe pneumonia Status: Acute Qualifiers: Pneumonia type: due to unspecified organism Qualified Codes: J18.9 - Pneumonia, unspecified organism (7) Atrial fibrillation with RVR Status: Acute (8) Tobacco abuse Status: Acute Clinical Quality Measures DVT/VTE Risk/Contraindication: Risk Factor Score Per Nursin RFS Level Per Nursing on Admit: 4+=Very High DANIELA CHACON MD Oct 02, 2019 10:13
[2019-10-02] MEDS: morphine INJ 4 MG/ML 1 ML (VIAL/SYRINGE) IVP PRN ×2 (10:59→20:21)
--- NOTE | 2019-10-02 11:04 | NUR ---
PALLIATIVE CARE RN in to see patient. SHe again reports not feeling and indicated she feels worse than yesterday. Attempted to have a discussion regarding options but she was not able to focus related to discomfort. She asked to be repositioned. Was very uncomfortable throughout and her saturation dropped into the mid 80's. Asked RN to given PRN dose of pain medication..I performed oral care as her mouth was dry and flakey...applied [place] was bam and left that in the room fo her. She did give permission to call and talk her daughter.
--- NOTE | 2019-10-02 13:15 | NUR ---
DR GALVAN NOTIFIED OF PT LOW URINE OUTPUT.
--- NOTE | 2019-10-02 13:24 | Progress Note - Cardiology ---
Cardiology SOAP Progress Note Subjective: Does not report symptoms except saying that she doesn't feel well Objective: I&O/Vital Signs 10/02/19 10/02/19 10/02/19 10/02/19 02:00 02:13 03:00 04:00 Pulse 86 84 89 Resp 26 29 21 B/P (MAP) 98/52 (67) 94/48 (63) 97/51 (66) Pulse Ox 96 95 94 O2 Delivery Vapotherm Vapotherm Vapotherm Vapotherm O2 Flow Rate 15.00 15.00 15.00 15.00 21.00 21.00 21.00 FiO2 21 10/02/19 10/02/19 10/02/19 10/02/19 04:00 04:00 05:00 06:00 Temp 36.7 Pulse 88 85 Resp 22 28 B/P (MAP) 93/49 (64) 102/52 (69) Pulse Ox 93 94 O2 Delivery Vapotherm Vapotherm Vapotherm O2 Flow Rate 15.00 15.00 15.00 21.00 21.00 FiO2 21 10/02/19 10/02/19 10/02/19 10/02/19 07:00 07:07 07:12 07:32 Temp 35.9 Pulse 84 88 Resp 29 B/P (MAP) 91/48 (62) Pulse Ox 94 96 O2 Delivery Vapotherm Vapotherm O2 Flow Rate 15.00 15.00 21.00 FiO2 21 10/02/19 10/02/19 10/02/19 10/02/19 08:00 08:00 09:00 10:00 Pulse 90 92 94 Resp 31 38 35 B/P (MAP) 96/59 (71) 103/56 (72) 128/103 (111) Pulse Ox 91 93 98 O2 Delivery Vapotherm Vapotherm Vapotherm Vapotherm O2 Flow Rate 15.00 15.00 15.00 15.00 21.00 21.00 21.00 FiO2 21 10/02/19 10/02/19 10/02/19 10/02/19 10:34 10:47 11:00 11:09 Temp 36.4 Pulse 83 Resp 25 B/P (MAP) 111/62 (78) Pulse Ox 94 92 O2 Delivery Vapotherm Vapotherm Vapotherm O2 Flow Rate 13.00 13.00 13.00 21.00 21.00 FiO2 21 10/02/19 10/02/19 12:00 12:00 Pulse 90 Resp 26 B/P (MAP) 87/49 (62) Pulse Ox 98 O2 Delivery Vapotherm Vapotherm O2 Flow Rate 13.00 13.00 21.00 FiO2 21 10/02/19 00:00 Intake Total 200 ml Output Total 750 ml Balance -550 ml Constitutional: well-developed, well-nourished, other (lethargic) Respiratory: No accessory muscle use; other (fair air entry, prolonged exp, rhonchi over large airways, coarse and fine basal crackles) Cardiovascular: irregularly irregular, S1 and S2, systolic murmur (soft WILLIAM at card base) Gastrointestional: No tender; soft; No guarding, No rebound; audible bowel sounds Extremities: swelling (mild, bilateral leg swelling); No clubbing, No cyanosis Neurologic/Psychiatric: alert, oriented x 3, other (moves all limbs equally) Skin: warm/dry, pallor Results/Procedures: Labs Laboratory Tests 10/02/19 01:45: White Blood Count 23.1H, Red Blood Count 3.31L, Hemoglobin 10.0L, Hematocrit 30L , Mean Corpuscular Volume 91, Mean Corpuscular Hemoglobin 30, Mean Corpuscular Hemoglobin Concent 33, Red Cell Distribution Width 16.7H, Platelet Count 220, Mean Platelet Volume 9.9, Neutrophils (%) (Auto) 93H, Lymphocytes (%) (Auto) 1L, Monocytes (%) (Auto) 6, Eosinophils (%) (Auto) 0, Basophils (%) (Auto) 0, Neutrophils # (Auto) 21.3H, Lymphocytes # (Auto) 0.3L, Monocytes # (Auto) 1.4H, Eosinophils # (Auto) 0.0, Basophils # (Auto) 0.0, Sodium Level 137, Potassium [place] brand[place] 3.4L, Chloride Level 107, Carbon Dioxide Level 17L, Anion Gap 13, Blood Urea Nitrogen 25H, Creatinine 0.78, Estimat Glomerular Filtration Rate > 60, BUN/Creatinine Ratio 32, Glucose Level 107H, Calcium Level 8.6, Phosphorus Level 2.8, Magnesium Level 1.8, B-Type Natriuretic Peptide 374.7H 10/02/19 06:35: Blood Gas Puncture Site LEFT RADIAL, Blood Gas Patient Temperature 36.5, Arterial Blood pH 7.41, Arterial Blood Partial Pressure CO2 37, Arterial Blood Partial Pressure O2 37*L, Arterial Blood HCO3 23, Arterial Blood Total CO2 24.5, Arterial Blood Oxygen Saturation 61L, Arterial Blood Base Excess -0.7, Angel Test YES-POS, Blood Gas Ventilator Setting NO, Blood Gas Inspired Oxygen 21% 10/02/19 08:20: Urine Color YELLOW, Urine Clarity CLEAR, Urine pH 5.5, Urine Specific [place] 1.020, Urine Protein TRACEH, Urine Glucose (UA) NEGATIVE, Urine Ketones TRACEH, Urine Nitrite NEGATIVE, Urine Bilirubin NEGATIVE, Urine Urobilinogen 1.0, Urine Leukocyte Esterase NEGATIVE, Urine RBC (Auto) NEGATIVE, Urine RBC NONE, Urine WBC 0-2, Urine Squamous Epithelial Cells 2-5, Urine Crystals PRESENTH, Urine Uric Acid Crystals RAREH, Urine Bacteria NEGATIVE, Urine Casts NONE, Urine Mucus NEGATIVE, Urine Culture Indicated NO Microbiology 09/28/19 MRSA Screen - Final, Complete MRSA not isolated 09/28/19 Urine Culture - Final, Complete NO GROWTH 09/28/19 Blood Culture - Preliminary, Resulted No growth Laboratory Tests 10/01/19 01:34 10/02/19 01:45 A/P: Assessment: Worsening clinical status: mental obtundation and decreasing urine output Septic shock due to community-acquired pneumonia Type 2 IA (due to shock) Echo of 10/02/19: LVEF 60-65%, no wall motion abnormality, pulmonary hypertension (PASP 60-65 mmHg) R hilar mass of undetermined etiology PAF Chronic tobacco use COPD Anemia of undetermined age and etiology Plan: * Deteriorating clinically, prognosis guarded * Furosemide today * Replenish K * Other issues being managed by the [facility] Clinical Quality Measures Type of Care: Type of Care: Pallative Care SOL GALVAN MD FACP FAC CCDS Oct 02, 2019 13:24
[2019-10-02] MEDS ORDERED: FUROSEMIDE 40 MG/4 ML INJ (LASIX) IVP NR (13:30)
[2019-10-02] MEDS: PIPERACILLIN/TAZOBACTAM (BULK) 4.5 GM in NS (IVPB) 100 ML IV SCH ×2 (14:20→21:04)
[2019-10-02 22:05] LABS: ABG BASE EXCESS 0.1 MMOL/L (-2.5-2.5); ABG OXYGEN SATURATION 100 % (94-100); ABG PCO2 38 MMHG (35-45); ABG PH 7.42 (7.37-7.43); ABG PO2 302 MMHG (79-93); ABG TCO2 25.3 MMOL/L (21.0-31.0)
[2019-10-02 22:10] LABS: ALLENS TEST YES-POS
[2019-10-02 22:11] LABS: INSPIRED O2 25%; PATIENT TEMP 36.8; VENTILATOR NO
--- NOTE | 2019-10-02 22:27 | NUR ---
THIS RN CONTACTED E-ICU @ 8442 ABOUT THIS PT'S LOW BLOOD PRESSURE AND LETHARGY. NEW ORDERS RECEIVED
--- NOTE | 2019-10-02 22:50 | NUR ---
NOTIFIED DR. FARMER AT 2240 THAT THE PT WAS STILL HYPOTENSIVE AFTER THE 500CC BOLUS. RECEIVED NEW ORDER FOR ANOTHER 500CC BOLUS. WILL CONTINUE TO MONITOR PT.
[2019-10-02] MEDS: LACTATED RINGERS 1,000 ML IV SCH ×2 (22:54→23:28)
[2019-10-03] VITALS (17 sets, daily range): BP systolic 70–123; BP diastolic 29–90
--- NOTE | 2019-10-03 00:36 | NUR ---
THIS RN SPOKE WITH DR. FARMER AGAIN @ 0035 IN REGARDS TO THIS PT'S CONTINUING HYPOTENSION. BP @ 0015 = 79/45 AND @ 0030 74/45 - NEW ORDERS RECEIVED AT THIS TIME.
[2019-10-03] MEDS ORDERED: NOREPINEPHRINE 4 MG/250 ML 250 ML IV ONE (00:37)
[2019-10-03] MEDS: NOREPINEPHRINE 4 MG/250 ML 250 ML IV SCH ×3 (00:45→12:47)
[2019-10-03 01:03] LABS: BASOPHILS % (AUTO) 0 % (0-10); EOSINOPHILS # (AUTO) 0.1 10^3/uL (0.0-0.3); EOSINOPHILS % (AUTO) 0 % (0-10); HEMATOCRIT 30 % (35-52); HEMOGLOBIN 9.9 G/DL (11.5-16.0); LYMPHOCYTES # (AUTO) 0.5 X 10^3 (1.0-4.0); LYMPHOCYTES % (AUTO) 2 % (12-44); MEAN CORPUSCULAR HEMOGLOBIN 30 PG (25-34); MEAN CORPUSCULAR HGB CONC 33 G/DL (32-36); MEAN CORPUSCULAR VOLUME 91 FL (80-99); MEAN PLATELET VOLUME 9.8 FL (7.4-10.4); MONOCYTES # (AUTO) 1.5 X 10^3 (0.0-1.0); MONOCYTES % (AUTO) 5 % (0-12); NEUTROPHILS # (AUTO) 26.8 X 10^3 (1.8-7.8); NEUTROPHILS % (AUTO) 93 % (42-75); PLATELET COUNT 190 10^3/uL (130-400); RED CELL DISTRIBUTION WIDTH 16.8 % (10.0-14.5); WHITE BLOOD COUNT 28.9 10^3/uL (4.3-11.0)
[2019-10-03 01:23] LABS: BUN/CREATININE RATIO 27; CALCIUM 8.5 MG/DL (8.5-10.1); CARBON DIOXIDE 21 MMOL/L (21-32); CHLORIDE 104 MMOL/L (98-107); CREATININE SERUM 0.77 MG/DL (0.60-1.30); GFR ESTIMATED > 60; GLUCOSE 99 MG/DL (70-105); MAGNESIUM 1.5 MG/DL (1.6-2.4); PHOSPHORUS 2.6 MG/DL (2.3-4.7); POTASSIUM 3.5 MMOL/L (3.6-5.0); SODIUM 136 MMOL/L (135-145)
[2019-10-03] MEDS: RT-ALBUTEROL/IPRATROPIUM 3 ML (DUONEB) VIAL INH SCH ×3 (01:54→15:35)
[2019-10-03] MEDS ORDERED: PHARMACY TO DOSE IV SCH (05:15)
[2019-10-03] MEDS ORDERED: MAGNESIUM 1 GM/100 ML IVPB 200 ML IV ONE (05:16)
[2019-10-03] MEDS ORDERED: POTASSIUM CL 10MEQ/50ML IVPB 100 ML IV ONE (05:16)
--- NOTE | 2019-10-03 05:20 | Pulmonary Progress Note ---
Subjective Date Seen by a Provider: Oct 03, 2019 Time Seen by a Provider: 05:13 Sepsis Event Evaluation Height, Weight, BMI Height: '" Weight: lbs. oz. kg; 25.42 BMI Method: Focused Exam Time of Focused Exam: 22:30 Exam Exam Vital Signs Date Time Temp Pulse Resp B/P (MAP) Pulse Ox O2 Delivery O2 Flow Rate FiO2 10/03/19 04:00 Vapotherm 30.00 45 10/03/19 04:00 106 23 123/61 (81) 94 Vapotherm 30.00 45.00 10/03/19 03:00 101 24 119/57 (77) 94 Vapotherm 30.00 45.00 10/03/19 02:00 90 19 103/56 (72) 95 Vapotherm 30.00 45.00 10/03/19 01:54 95 30.00 45 10/03/19 01:00 95 10/03/19 01:00 95 21 96/53 (67) 93 Vapotherm 30.00 45.00 10/03/19 00:45 88 82/39 10/03/19 00:00 89 23 89/43 (58) 96 Vapotherm 30.00 45.00 10/03/19 00:00 Vapotherm 30.00 45 10/03/19 00:00 36.6 10/02/19 23:30 Vapotherm 30.00 45.00 10/02/19 23:00 87 24 88/47 (61) 95 Vapotherm 25.00 30.00 10/02/19 22:00 89 26 88/43 (58) 97 30.00 25.00 10/02/19 21:05 Vapotherm 30.00 25.00 10/02/19 21:00 92 25 90/44 (59) 90 30.00 25.00 10/02/19 20:47 97 20.00 40 10/02/19 20:00 36.2 10/02/19 20:00 Vapotherm 20.00 25 10/02/19 20:00 93 29 91/54 (66) 91 20.00 45.00 10/02/19 19:00 91 28 80/50 (60) 91 Vapotherm 20.00 25.00 10/02/19 19:00 91 10/02/19 18:16 92 Vapotherm 20.00 25 10/02/19 18:00 92 26 87/51 (63) 93 Vapotherm 20.00 25.00 10/02/19 17:00 90 25 95/49 (64) 87 Vapotherm 20.00 25.00 10/02/19 16:18 Vapotherm 20.00 25.00 10/02/19 16:11 85 Vapotherm 13.00 21 10/02/19 16:00 89 26 88/53 (65) Vapotherm 13.00 21.00 10/02/19 16:00 Vapotherm 13.00 21 10/02/19 16:00 36.0 10/02/19 15:16 Vapotherm 13.00 21 10/02/19 15:00 90 25 98/52 (67) 99 Vapotherm 13.00 21.00 10/02/19 14:00 89 19 95/53 (67) 100 Vapotherm 13.00 21.00 10/02/19 13:00 88 24 101/51 (68) 100 Vapotherm 13.00 21.00 10/02/19 13:00 88 10/02/19 12:00 Vapotherm 13.00 21 10/02/19 12:00 90 26 87/49 (62) 98 Vapotherm 13.00 21.00 10/02/19 11:09 36.4 10/02/19 11:00 83 25 111/62 (78) 92 Vapotherm 13.00 21.00 10/02/19 10:47 Vapotherm 13.00 21.00 10/02/19 10:34 94 Vapotherm 13.00 21 10/02/19 10:00 94 35 128/103 (111) 98 Vapotherm 15.00 21.00 10/02/19 09:00 92 38 103/56 (72) 93 Vapotherm 15.00 21.00 10/02/19 08:00 Vapotherm 15.00 21 10/02/19 08:00 90 31 96/59 (71) 91 Vapotherm 15.00 21.00 10/02/19 07:32 96 Vapotherm 15.00 21 10/02/19 07:12 35.9 10/02/19 07:07 88 10/02/19 07:00 84 29 91/48 (62) 94 Vapotherm 15.00 21.00 8/25/20 06:00 85 28 102/52 (24) 94 Vapotherm 15.00 21.00 I & O 10/03/19 07:00 Intake Total 180 ml Output Total 2600 ml Balance -2420 ml Height & Weight Height: '" Weight: lbs. oz. kg; 25.42 BMI Method: General Appearance: No Apparent Distress, Chronically ill HEENT: PERRL/EOMI, Pharynx Normal Neck: Normal Inspection, Supple Respiratory: No Accessory Muscle Use, Decreased Breath Sounds; No Wheezing; Other (on vapotherm) Cardiovascular: Regular Rate, Rhythm, No Murmur Capillary Refill: Less Than 3 Seconds Gastrointestinal: non tender, soft Extremity: No Calf Tenderness, No Pedal Edema, Other (upper extremity edema) Neurologic/Psychiatric: Alert, Oriented x3, Normal Mood/Affect Skin: Normal Color, Warm/Dry Lymphatic: No Adenopathy Results Lab Laboratory Tests 10/02/19 01:45 10/03/19 00:55 Assessment/Plan Assessment/Plan Acute on chronic respiratory failure CAP with sepsis - Zosyn -Add Vancomycin secondary to worsening leukocytosis and now hypotension Anemia -Monitor Worsening hypotension -now on levophed -Give 500 cc bolus x 1 Right lung mass RUL with bulky lymphadenopathy -PT needs bronchoscopy with EBUS. Will schedule for Tuesday. Right pleural effusion possibly secondary to endobronchial mass -Will do thoracentesis -Pt is now not stable enough for bronch Hypokalemia -replace COPD - currently stable Tobacco dependace NSTEMI -Cardiology is following GENNARO BARBOSA DO Oct 03, 2019 05:20
[2019-10-03] MEDS: POTASSIUM CL 10MEQ/50ML IVPB 50 ML IV SCH ×2 (05:22→06:11)
[2019-10-03] MEDS: PIPERACILLIN/TAZOBACTAM (BULK) 4.5 GM in NS (IVPB) 100 ML IV SCH ×2 (05:22→14:27)
[2019-10-03] MEDS: MAGNESIUM 1 GM/100 ML IVPB 100 ML IV SCH ×2 (05:22→06:42)
[2019-10-03] MEDS: morphine INJ 4 MG/ML 1 ML (VIAL/SYRINGE) IVP PRN ×2 (05:40→14:55)
[2019-10-03] MEDS ORDERED: MAGNESIUM 1 GM/100 ML IVPB 100 ML IV SCH (06:00)
[2019-10-03] MEDS ORDERED: POTASSIUM CL 10MEQ/50ML IVPB 50 ML IV SCH (06:00)
[2019-10-03] MEDS ORDERED: KCL 20 MEQ TAB (K-DUR) PO SCH (06:00)
[2019-10-03] MEDS ORDERED: VANCOMYCIN INJECTION 1,250 MG in NS (IVPB) 250 ML IV SCH ×2 (06:00→10:00)
[2019-10-03] MEDS: LORazepam INJ 2 MG/ML (ATIVAN) VIAL IVP PRN ×2 (07:14→17:41)
--- NOTE | 2019-10-03 08:13 | NUR ---
VANCOMYCIN PHARMACY TO DOSE. LOADING DOSE DOSED PER [facility]ARM[facility]: VANCOMYCIN LOADING DOSE 1250MG 10/02 @ 0600. PATIENT WEIGHT 67.1KG, SCr 0.77, CrCl 44.5, BMI 28.0. MAINTENANCE DOSE 67.1KG X 15MG/KG ~ 1 G Q24H. VANCOMYCIN TROUGH DUE 10/05 @ 0500. IF TROUGH > 20 HOLD DOSE AND NOTIFY PHARMACY FOR ADJUSTMENTS.
--- NOTE | 2019-10-03 08:42 | Diagnostic Imaging Report ---
INDICATION: Dyspnea. Frontal chest obtained at 03:31 a.m. and compared to 10/02/2019. FINDINGS: Heart is mildly enlarged. Large pleural effusion on the right side is again noted with mild increased compared to the prior study. There is worsening infiltrate versus atelectasis in the right lung with minimal aeration of the right upper lobe. Left lung is clear. There is a small left pleural effusion. IMPRESSION: Increasing right pleural effusion and increasing right lung infiltrate versus atelectasis. There is minimal aeration of the right lung apex. Minimal left pleural effusion now noted. Dictated by: Dictated on workstation # [id number]
--- NOTE | 2019-10-03 08:55 | Progress Note - Cardiology ---
Cardiology SOAP Progress Note Subjective: Lethargic this morning. Opens eyes. Requiring continuous Bi-pap. Objective: I&O/Vital Signs 10/04/19 10/04/19 08:00 10:20 Temp 36.5 O2 Delivery Nasal Cannula O2 Flow Rate 3.00 10/04/19 00:00 Intake Total 0 ml Output Total 2250 ml Balance -2250 ml Constitutional: well-developed, well-nourished, other (lethargic) Respiratory: No accessory muscle use; other (fair air entry, prolonged exp, rhonchi over large airways, coarse and fine basal crackles) Cardiovascular: irregularly irregular, S1 and S2, systolic murmur (soft WILLIAM at card base) Gastrointestional: No tender; soft; No guarding, No rebound; audible bowel sounds Extremities: swelling (mild, bilateral leg swelling); No clubbing, No cyanosis Neurologic/Psychiatric: alert, oriented x 3, other (moves all limbs equally) Skin: warm/dry, pallor Results/Procedures: Labs Microbiology 10/02/19 Blood Culture - Preliminary, Resulted No growth 09/28/19 MRSA Screen - Final, Complete MRSA not isolated 09/28/19 Urine Culture - Final, Complete NO GROWTH Procedures NAME: RUTHIE KEENE [facility] REC#: [id number] PT STATUS: ADM IN : 1945 PHYSICIAN: CHRIS MADSEN MD ADMIT DATE: 09/28/19/ICU Draft Date of Exam:10/03/19 CHEST 1 VIEW, AP/PA ONLY INDICATION: Dyspnea. Frontal chest obtained at 03:31 a.m. and compared to 10/02/2019. FINDINGS: Heart is mildly enlarged. Large pleural effusion on the right side is again noted with mild increased compared to the prior study. There is worsening infiltrate versus atelectasis in the right lung with minimal aeration of the right upper lobe. Left lung is clear. There is a small left pleural effusion. IMPRESSION: Increasing right pleural effusion and increasing right lung infiltrate versus atelectasis. There is minimal aeration of the right lung apex. Minimal left pleural effusion now noted. Dictated on workstation # [id number] Dict: 10/03/19 0839 Trans: 10/03/19 0842 [id number] Interpreted by: CAMERON SIERRA MD Electronically signed by: A/P: Assessment: Worsening clinical status: mental obtundation and decreasing urine output Septic shock due to community-acquired pneumonia Type 2 MN (due to shock) Echo of 10/02/19: LVEF 60-65%, no wall motion abnormality, pulmonary hypertension (PASP 60-65 mmHg) R hilar mass of undetermined etiology - pulmonary services managing PAF Chronic tobacco use COPD Anemia of undetermined age and etiology Plan: * Deteriorating clinically, prognosis guarded * Unable to take oral meds d/t lethargy and need for continuous Bi-pap - change Dig to IV * Dig level today and tomorrow * Furosemide today * Replenish K * Other issues being managed by the [facility] Clinical Quality Measures Type of Care: Type of Care: Pallative Care KASSANDRA MOELLER Oct 03, 2019 08:55
[2019-10-03] MEDS ORDERED: DIGOXIN 0.25 MG/ML (LANOXIN) 2 ML AMP IV SCH (09:00)
[2019-10-03] MEDS ORDERED: FUROSEMIDE 40 MG/4 ML INJ (LASIX) IVP ONE (09:00)
[2019-10-03] MEDS: LACTATED RINGERS 1,000 ML IV SCH (09:40)
--- NOTE | 2019-10-03 09:40 | Progress Note - Hospitalist ---
Subjective HPI/CC On Admission Date Seen by Provider: Oct 03, 2019 Time Seen by Provider: 09:35 Nyasia Dunlap is a 74 year old female with PMH COPD, tobacco abuse, who presented with shortness of breath. She reports having a fall at home recently. She reports a cough. She denies fevers and chills. She denies chest pain. She denies abdominal pain, nausea, and vomiting. She denies diarrhea. She reportedly has had decreased taste and smell. She has a history of COPD, but has not been taking any medications or inhalers. She denies any history of AFib. She has smoked for over 50 years but says she quit about two weeks ago. Subjective/Events-last exam Pt is currently on BiPAP. Unable to do Bronch this morning due to respiratory status. Dr Lucas wanted to do a thoracentesis but patient declined. Right now states she is breathing better on BiPAP but then just closes her eyes and doesn't answer other questions. Back on Pressors as well. Focused Exam Lactate Level 10/03/19 07:05: Lactic Acid Level 2.13*H Time of Focused Exam: 22:30 Lactic Acid Level Laboratory Tests Test 10/03/19 07:05 Lactic Acid Level 2.13 MMOL/L (0.50-2.00) *H Objective Exam Vital Signs Vital Signs Date Time Temp Pulse Resp B/P (MAP) Pulse Ox O2 Delivery O2 Flow Rate FiO2 10/03/19 08:00 36.8 10/03/19 08:00 NIV Bilevel 50 10/03/19 07:30 50.00 10/03/19 07:14 101 104/71 10/03/19 06:00 21 95 Capillary Refill : Less Than 3 Seconds General Appearance: Chronically ill, Other (arouses to verbal stimuli but otherwise drowsy) Respiratory: Decreased Breath Sounds; No Wheezing; Other (on BiPAP) Cardiovascular: Regular Rate, Rhythm, No Murmur Gastrointestinal: Normal Bowel Sounds, Non Tender, Soft Genital/Rectal: Other (issa in place) Extremity: No Pedal Edema, Other (upper extremity edema) Neurologic/Psychiatric: Alert, Oriented x3 Results/Procedures Lab Laboratory Tests 10/03/19 00:55 Patient resulted labs reviewed. Imaging: Reviewed Imaging Report Assessment/Plan Assessment and Plan Assess & Plan/Chief Complaint Community acquired pneumonia Right lung mass Acute respiratory failure with hypoxia COPD without acute exacerbation Tobacco abuse NSTEMI, likely type II Atiral fibrillation with rapid ventricular response- RVR resolved -Vanc and Zosyn -COVID PCR negative -Now on BiPAP -CT Chest showed no PE, revealed right hilar mass with likely bronchial invasion -consult pulmonology - Unable to do bronch this AM -Continue Digoxin - Back on pressors this AM -Cardiology following, appreciate assistance -palliative care consult placed Septic shock, resolved Lactic acidosis, resolved Dispo; Will attempt to have meeting with patient, daughter, and palliative Care RN this afternoon. Prognosis is guarded and she is clinically worsening. I worry she may be actively dying from presumed invasive cancer. Diagnosis/Problems Diagnosis/Problems (1) Mass of right lung Status: Acute (2) Lactic acidosis Status: Resolved Resolution Date/Time: 09/30/19 @ 12:25 (3) Septic shock Status: Resolved Resolution Date/Time: 09/30/19 @ 12:25 (4) Acute respiratory failure with hypoxia Status: Acute (5) NSTEMI (non-ST elevation myocardial infarction) Status: Acute (6) Right middle lobe pneumonia Status: Acute Qualifiers: Pneumonia type: due to unspecified organism Qualified Codes: J18.9 - Pneumonia, unspecified organism (7) Atrial fibrillation with RVR Status: Acute (8) Tobacco abuse Status: Acute Clinical Quality Measures DVT/VTE Risk/Contraindication: Risk Factor Score Per Nursin RFS Level Per Nursing on Admit: 4+=Very High DANIELA CHACON MD Oct 03, 2019 09:40
[2019-10-03] MEDS: ADVAIR HFA 115/21 MCG INHALER 8 GM IH SCH (09:52)
--- NOTE | 2019-10-03 10:00 | NUR ---
Palliative Care RN got call from Dr. Lucas this morning @ 6:50 this morning. He is requesting that I see patient this morning. Reported that she has refused a Thoracentesis and is too ill to proceed with the Bronchoscopy with EBUS. She is currently on BiPAP and has been had ATIVAN PRN. Difficult to awaken. Will be available to family discussion this afternoon with Dr. Huizar.
[2019-10-03] MEDS ORDERED: DIGOXIN 0.25 MG/ML (LANOXIN) 2 ML AMP IV ONE (10:30)
--- NOTE | 2019-10-03 14:30 | NUR ---
Pastoral care paged, contacted daughter at bedside, decision had been made to move pt to comfort care. Daughter shared in life review and difficulty of "letting Mom go" further shared that pts spouse is in area facility on hospice. I offered prayer and support.
[2019-10-03] MEDS ORDERED: morphine (ROXINOL) 10 MG/0.5 ML oral conc 0.5 ML PO PRN (15:00)
[2019-10-03] MEDS ORDERED: SCOPOLAMINE 1.5 MG (TRANSDERM-SCOP) PATCH TOP SCH (15:00)
[2019-10-03] MEDS ORDERED: ARTIFICAL TEARS 0.4 ML UNIT DOSE (REFRESH PLUS) OU PRN (15:00)
[2019-10-03] MEDS ORDERED: ONDANSETRON 4 MG/2 ML (SDV) Z0FRAN IVP PRN (15:00)
[2019-10-03] MEDS ORDERED: RT-ALBUTEROL/IPRATROPIUM 3 ML (DUONEB) VIAL INH PRN (15:00)
[2019-10-03] MEDS ORDERED: SALIVA STIMULANT MOUTH SPRAY (BIOTENE) 1.5 OZ MM PRN (15:00)
[2019-10-03] MEDS ORDERED: PROMETHAZINE INJ 25 MG/ML (PHENERGAN) AMP IVP PRN (15:00)
[2019-10-03] MEDS ORDERED: LORazepam ORAL CONCENTRATE 2 MG/ML 30 ML (ATIVAN) PO PRN (15:00)
[2019-10-03] MEDS ORDERED: BISACODYL 10 MG SUPP (DULCOLAX) PR PRN (15:00)
[2019-10-03] MEDS ORDERED: ACETAMINOPHEN 650 MG SUPP (TYLENOL) PR PRN (15:00)
[2019-10-03] MEDS ORDERED: ATROPINE 1% OPHTHALMIC SOLN 2 ML SL PRN (15:00)
--- NOTE | 2019-10-03 16:57 | Progress Note - Cardiology ---
Cardiology SOAP Progress Note Subjective: Does not report symptoms except that she doesn't feel well Objective: I&O/Vital Signs 10/03/19 10/03/19 10/03/19 10/03/19 05:00 06:00 06:31 07:00 Pulse 105 102 101 96 Resp 21 35 B/P (MAP) 70/61 (64) 103/60 (74) 104/71 (82) Pulse Ox 95 75 O2 Delivery Vapotherm Vapotherm Vapotherm O2 Flow Rate 30.00 30.00 30.00 45.00 45.00 45.00 10/03/19 10/03/19 10/03/19 10/03/19 07:00 07:14 07:30 08:00 Pulse 101 101 101 Resp 39 21 B/P (MAP) 104/71 110/60 (77) Pulse Ox 93 94 O2 Delivery NIV Bilevel NIV Bilevel O2 Flow Rate 50.00 50.00 50.00 10/03/19 10/03/19 10/03/19 10/03/19 08:00 08:00 09:00 09:51 Temp 36.8 Pulse 98 98 Resp 21 24 B/P (MAP) 105/59 (74) Pulse Ox 94 95 O2 Delivery NIV Bilevel NIV Bilevel O2 Flow Rate 50.00 50.00 FiO2 50 10/03/19 10/03/19 10/03/19 10/03/19 09:52 10:00 11:00 12:00 Pulse 98 98 Resp 18 24 B/P (MAP) 112/62 (79) 109/53 (71) Pulse Ox 95 96 96 O2 Delivery NIV Bilevel NIV Bilevel NIV Bilevel NIV Bilevel O2 Flow Rate 50.00 50.00 FiO2 50 50 10/03/19 10/03/19 10/03/19 10/03/19 12:00 12:02 12:47 12:51 Temp 36.5 Pulse 93 98 98 Resp 22 B/P (MAP) 104/58 (73) 101/62 Pulse Ox 94 O2 Delivery NIV Bilevel O2 Flow Rate 50.00 10/03/19 10/03/19 10/03/19 10/03/19 13:00 14:00 15:00 15:00 Pulse 98 104 89 Resp 20 15 29 B/P (MAP) 109/75 (86) 109/75 (86) 89/29 (49) Pulse Ox 94 93 97 O2 Delivery NIV Bilevel NIV Bilevel Nasal Cannula Nasal Cannula O2 Flow Rate 50.00 50.00 3.00 3.00 10/03/19 00:00 Intake Total 260 ml Output Total 2050 ml Balance -1790 ml Constitutional: well-developed, well-nourished, other (lethargic) Respiratory: No accessory muscle use; other (fair air entry, prolonged exp, rhonchi over large airways, coarse and fine basal crackles) Cardiovascular: irregularly irregular, S1 and S2, systolic murmur (soft WILLIAM at card base) Gastrointestional: No tender; soft; No guarding, No rebound; audible bowel sounds Extremities: swelling (mild, bilateral leg swelling); No clubbing, No cyanosis Neurologic/Psychiatric: alert, oriented x 3, other (moves all limbs equally) Skin: warm/dry, pallor Results/Procedures: Labs Laboratory Tests 10/02/19 22:00: Blood Gas Puncture Site LEFT RADIAL, Blood Gas Patient Temperature 36.8, Arterial Blood pH 7.42, Arterial Blood Partial Pressure CO2 38, Arterial Blood Partial Pressure O2 302H, Arterial Blood HCO3 24, Arterial Blood Total CO2 25.3, Arterial Blood Oxygen Saturation 100, Arterial Blood Base Excess 0.1, Angel Test YES-POS, Blood Gas Ventilator Setting NO, Blood Gas Inspired Oxygen 25% 10/03/19 00:55: White Blood Count 28.9H, Red Blood Count 3.32L, Hemoglobin 9.9L, Hematocrit 30L, Mean Corpuscular Volume 91, Mean Corpuscular Hemoglobin 30, Mean Corpuscular Hemoglobin Concent 33, Red Cell Distribution Width 16.8H, Platelet Count 190, Mean Platelet Volume 9.8, Neutrophils (%) (Auto) 93H, Lymphocytes (%) (Auto) 2L, Monocytes (%) (Auto) 5, Eosinophils (%) (Auto) 0, Basophils (%) (Auto) 0, Neutrophils # (Auto) 26.8H, Lymphocytes # (Auto) 0.5L, Monocytes # (Auto) 1.5H, Eosinophils # (Auto) 0.1, Basophils # (Auto) 0.0, Sodium Level 136, Potassium Level 3.5L, Chloride Level 104, Carbon Dioxide Level 21, Anion Gap 11, Blood Urea Nitrogen 21H, Creatinine 0.77, Estimat Glomerular Filtration Rate > 60, BUN/Creatinine Ratio 27, Glucose Level 99, Calcium Level 8.5, Phosphorus Level 2.6, Magnesium Level 1.5L, Procalcitonin 0.16H, Digoxin Level 1.35 10/03/19 07:05: Lactic Acid Level 2.13*H 10/03/19 09:30: Lactic Acid Level 1.50 Microbiology 10/02/19 Blood Culture - Preliminary, Resulted 09/28/19 MRSA Screen - Final, Complete MRSA not isolated 09/28/19 Urine Culture - Final, Complete NO GROWTH A/P: Assessment: Worsening clinical status: mental obtundation and decreasing urine output Septic shock due to community-acquired pneumonia Type 2 SC (due to shock) Echo of 10/02/19: LVEF 60-65%, no wall motion abnormality, pulmonary hypertension (PASP 60-65 mmHg) R hilar mass of undetermined etiology - pulmonary services managing PAF Chronic tobacco use COPD Anemia of undetermined age and etiology Plan: * Deteriorating clinically, prognosis guarded * Unable to take oral meds d/t lethargy and need for continuous Bi-pap - change Dig to IV * Dig level today and tomorrow * Furosemide today * Replenish K * Other issues being managed by the [facility] Clinical Quality Measures Type of Care: Type of Care: Pallative Care SOL GALVAN MD FACP FAC CCDS Oct 03, 2019 16:56
--- NOTE | 2019-10-03 20:09 | NUR ---
Pt to 4th floor at this time, care and report given to SPENCER Ruff.
[2019-10-03] MEDS: morphine INJ 4 MG/ML 1 ML (VIAL/SYRINGE) IV PRN (23:14)
[2019-10-04] MEDS: LORazepam INJ 2 MG/ML (ATIVAN) VIAL IVP PRN ×5 (01:18→21:11)
[2019-10-04] MEDS: GLYCOPYRROLATE 0.2 MG/ML (ROBINUL) 2 ML VIAL IV PRN (04:39)
[2019-10-04] MEDS: morphine INJ 4 MG/ML 1 ML (VIAL/SYRINGE) IV PRN ×3 (04:39→23:10)
--- NOTE | 2019-10-04 08:31 | NUR ---
PALLIATIVE CARE RN in to see patient. She is CCMO yesterday and is transitioned from yesterday. She has O2 on at 2 L, Her respirations are even and shallow. Did respond to voice but only by facial grimace and then she coughed. Her Lower extremities are not edematous and she is showing signs of mottling on her feet. Will continue to follow and offer support during this dying process. Anticipate she has 12 to 24 hours of life left
[2019-10-04] MEDS ORDERED: DIGOXIN 0.25 MG/ML (LANOXIN) 2 ML AMP IV SCH (09:00)
--- NOTE | 2019-10-04 09:44 | NUR ---
PALLIATIVE CARE RN in tos check on patient. She had her eyes open and her respirations we tachypneic. She verbalized that she needed something for her breathing. I have spoken to her RN and she will get her something for [employer].
[2019-10-04] MEDS ORDERED: VANCOMYCIN 1 GM/NS 250 ML IVPB IV SCH ×2 (10:00)
--- NOTE | 2019-10-04 12:41 | NUR ---
PC RN to check on patient. She is having tachy respirations and has an occasional loose cough. Oxygen remains on at 2 L. No needs at this time. NO family present in the room, but I did attempt to return phone carlito to from daughter no answer left message.
--- NOTE | 2019-10-04 14:31 | Progress Note - Hospitalist ---
Subjective HPI/CC On Admission Date Seen by Provider: Oct 04, 2019 Time Seen by Provider: 10:30 Nyasia Dunlap is a 74 year old female with PMH COPD, tobacco abuse, who presented with shortness of breath. She reports having a fall at home recently. She reports a cough. She denies fevers and chills. She denies chest pain. She denies abdominal pain, nausea, and vomiting. She denies diarrhea. She reportedly has had decreased taste and smell. She has a history of COPD, but has not been taking any medications or inhalers. She denies any history of AFib. She has smoked for over 50 years but says she quit about two weeks ago. Subjective/Events-last exam Pt resting comfortbaly. Opened eyes when I spoke to her but quickly fell back asleep. Focused Exam Lactate Level 10/03/19 07:05: Lactic Acid Level 2.13*H 10/03/19 09:30: Lactic Acid Level 1.50 Time of Focused Exam: 22:30 Objective Exam Vital Signs Vital Signs Date Time Temp Pulse Resp B/P (MAP) Pulse Ox O2 Delivery O2 Flow Rate FiO2 10/04/19 10:20 36.5 10/04/19 08:00 Nasal Cannula 3.00 10/03/19 15:00 89 29 89/29 (49) 97 10/03/19 12:00 50 Capillary Refill : Less Than 3 Seconds General Appearance: No Apparent Distress, Chronically ill Respiratory: No Accessory Muscle Use, Decreased Breath Sounds Cardiovascular: Regular Rate, Rhythm Gastrointestinal: Normal Bowel Sounds, Soft Extremity: Swelling (upper extremity edema) Results/Procedures Lab Patient resulted labs reviewed. Imaging: Reviewed Imaging Report Assessment/Plan Assessment and Plan Assess & Plan/Chief Complaint Community acquired pneumonia Right lung mass Acute respiratory failure with hypoxia COPD without acute exacerbation Tobacco abuse NSTEMI, likely type II Atiral fibrillation with rapid ventricular response Septic shock Lactic acidosis Family elected CCMO yesterday Continue current measures geared towards comfort Anticipate is imminent Palliative Care RN consulted, appreciate her expertise Diagnosis/Problems Diagnosis/Problems (1) Mass of right lung Status: Acute (2) Lactic acidosis Status: Resolved Resolution Date/Time: 09/30/19 @ 12:25 (3) Septic shock Status: Resolved Resolution Date/Time: 09/30/19 @ 12:25 (4) Acute respiratory failure with hypoxia Status: Acute (5) NSTEMI (non-ST elevation myocardial infarction) Status: Acute (6) Right middle lobe pneumonia Status: Acute Qualifiers: Pneumonia type: due to unspecified organism Qualified Codes: J18.9 - Pneumonia, unspecified organism (7) Atrial fibrillation with RVR Status: Acute (8) Tobacco abuse Status: Acute Clinical Quality Measures DVT/VTE Risk/Contraindication: Risk Factor Score Per Nursin RFS Level Per Nursing on Admit: 4+=Very High DANIELA CHACON MD Oct 04, 2019 14:31
--- NOTE | 2019-10-04 15:05 | Cardiology Progress Note ---
Cardiology SOAP Progress Note Subjective: Patient was not very responsive. Not alert. Objective: I&O/Vital Signs 10/04/19 10/04/19 08:00 10:20 Temp 36.5 O2 Delivery Nasal Cannula O2 Flow Rate 3.00 10/04/19 00:00 Intake Total 0 ml Output Total 2250 ml Balance -2250 ml Constitutional: well-developed, well-nourished, other (lethargic) Respiratory: No accessory muscle use; wheezing, other (fair air entry, prolonged exp, rhonchi over large airways, coarse and fine basal crackles) Cardiovascular: irregularly irregular, S1 and S2, systolic murmur (soft WILLIAM at card base) Gastrointestional: No tender; soft; No guarding, No rebound; audible bowel sounds Extremities: swelling (mild, bilateral leg swelling); No clubbing, No cyanosis Neurologic/Psychiatric: other (moves all limbs equally) Skin: warm/dry, pallor Results/Procedures: Labs Microbiology 10/02/19 Blood Culture - Preliminary, Resulted No growth 09/28/19 MRSA Screen - Final, Complete MRSA not isolated 09/28/19 Urine Culture - Final, Complete NO GROWTH A/P: Assessment/Dx: Worsening clinical status: mental obtundation and decreasing urine output Septic shock due to community-acquired pneumonia Type 2 SD (due to shock) Echo of 10/02/19: LVEF 60-65%, no wall motion abnormality, pulmonary hypertension (PASP 60-65 mmHg) R hilar mass of undetermined etiology - pulmonary services managing PAF Chronic tobacco use COPD Anemia of undetermined age and etiology Plan: Plan: * Deteriorating clinically, prognosis guarded * Unable to take oral meds d/t lethargy and need for continuous Bi-pap - change Dig to IV * Dig level today and tomorrow * Furosemide today * Replenish K * [facility] Thank you for your consultation. Please call me if you have any questions. Rosana Haque MD, FACP, FACC, FSCAI, FHRS, CCDS Interventional Cardiology Cardiac Electrophysiology Vascular Medicine and Endovascular Interventions Focused Exam Lactate Level 10/03/19 07:05: Lactic Acid Level 2.13*H 10/03/19 09:30: Lactic Acid Level 1.50 Time of Focused Exam: 22:30 Clinical Quality Measures Type of Care: Type of Care: Pallative Care Theo HAQUE MD Oct 04, 2019 15:05
[2019-10-05] MEDS: LORazepam INJ 2 MG/ML (ATIVAN) VIAL IVP PRN ×3 (03:15→12:29)
[2019-10-05] MEDS: morphine INJ 4 MG/ML 1 ML (VIAL/SYRINGE) IV PRN ×2 (06:06→12:28)
--- NOTE | 2019-10-05 09:49 | NUR ---
Palliative Care R in to see the patient. She is resting with eyes closed. Course breath sounds heard. She is had O2 on at 2 L/NC and this will be removed today ow turned to .5 L. Urine is dark today and lessening in its production. No mottling noted, but ears are thinner today.
[2019-10-05] MEDS: GLYCOPYRROLATE 0.2 MG/ML (ROBINUL) 2 ML VIAL IV PRN (12:28)
--- NOTE | 2019-10-05 12:51 | Cardiology Progress Note ---
Cardiology SOAP Progress Note Subjective: Patient is noncommunicative. Objective: I&O/Vital Signs 10/05/19 07:42 O2 Delivery Nasal Cannula O2 Flow Rate 3.00 10/05/19 00:00 Intake Total 0 ml Output Total 310 ml Balance -310 ml Constitutional: well-developed, well-nourished, other (lethargic) Respiratory: No accessory muscle use; wheezing, other (fair air entry, prolonged exp, rhonchi over large airways, coarse and fine basal crackles) Cardiovascular: irregularly irregular, S1 and S2, systolic murmur (soft WILLIAM at card base) Gastrointestional: No tender; soft; No guarding, No rebound; audible bowel sounds Extremities: swelling (mild, bilateral leg swelling); No clubbing, No cyanosis Neurologic/Psychiatric: other (moves all limbs equally) Skin: warm/dry, pallor Results/Procedures: Labs Microbiology 10/02/19 Blood Culture - Preliminary, Resulted No growth 09/28/19 MRSA Screen - Final, Complete MRSA not isolated 09/28/19 Urine Culture - Final, Complete NO GROWTH A/P: Assessment/Dx: Worsening clinical status: mental obtundation and decreasing urine output Septic shock due to community-acquired pneumonia Type 2 MT (due to shock) Echo of 10/02/19: LVEF 60-65%, no wall motion abnormality, pulmonary hypertension (PASP 60-65 mmHg) R hilar mass of undetermined etiology - pulmonary services managing PAF Chronic tobacco use COPD Anemia of undetermined age and etiology Plan: Plan: * Deteriorating clinically, prognosis guarded * Unable to take oral meds d/t lethargy and need for continuous Bi-pap - change Dig to IV * Furosemide when necessary * Replenish K * Other [facility] Thank you for your consultation. Please call me if you have any questions. Rosana Haque MD, FACP, FACC, FSCAI, FHRS, CCDS Interventional Cardiology Cardiac Electrophysiology Vascular Medicine and Endovascular Interventions Focused Exam Lactate Level 10/03/19 07:05: Lactic Acid Level 2.13*H 10/03/19 09:30: Lactic Acid Level 1.50 Time of Focused Exam: 22:30 Clinical Quality Measures Type of Care: Type of Care: Pallative Care Theo HAQUE MD Oct 05, 2019 12:51
--- NOTE | 2019-10-05 12:56 | NUR ---
PCRN to see patient. She is unresponsive today, not waking to verbal or tactile. Oxygen is now off and patient has just recently been given PRN comfort medications. Will continue to monitor for needs.
--- NOTE | 2019-10-05 15:54 | Progress Note - Hospitalist ---
Subjective HPI/CC On Admission Date Seen by Provider: Oct 05, 2019 Time Seen by Provider: 15:52 Nyasia Dunlap is a 74 year old female with PMH COPD, tobacco abuse, who presented with shortness of breath. She reports having a fall at home recently. She reports a cough. She denies fevers and chills. She denies chest pain. She denies abdominal pain, nausea, and vomiting. She denies diarrhea. She reportedly has had decreased taste and smell. She has a history of COPD, but has not been taking any medications or inhalers. She denies any history of AFib. She has smoked for over 50 years but says she quit about two weeks ago. Subjective/Events-last exam Pt is unresponsive today. Resting peacefully. Focused Exam Lactate Level 10/03/19 07:05: Lactic Acid Level 2.13*H 10/03/19 09:30: Lactic Acid Level 1.50 Time of Focused Exam: 22:30 Objective Exam Vital Signs Vital Signs Date Time Temp Pulse Resp B/P (MAP) Pulse Ox O2 Delivery O2 Flow Rate FiO2 10/05/19 08:00 Nasal Cannula 3.00 10/04/19 10:20 36.5 10/03/19 15:00 89 29 89/29 (49) 97 10/03/19 12:00 50 Capillary Refill : Less Than 3 Seconds General Appearance: Chronically ill Respiratory: No Respiratory Distress Cardiovascular: Regular Rate, Rhythm Genital/Rectal: Other (issa in place with dark urine) Neurologic/Psychiatric: Other (unresponsive) Skin: No Mottled Results/Procedures Lab Patient resulted labs reviewed. Imaging: Reviewed Imaging Report Assessment/Plan Assessment and Plan Assess & Plan/Chief Complaint Community acquired pneumonia Right lung mass Acute respiratory failure with hypoxia COPD without acute exacerbation Tobacco abuse NSTEMI, likely type II Atiral fibrillation with rapid ventricular response Septic shock Lactic acidosis Family elected CCMO Continue current measures geared towards comfort Anticipate is imminent Palliative Care RN consulted, appreciate her expertise Diagnosis/Problems Diagnosis/Problems (1) Mass of right lung Status: Acute (2) Lactic acidosis Status: Resolved Resolution Date/Time: 09/30/19 @ 12:25 (3) Septic shock Status: Resolved Resolution Date/Time: 09/30/19 @ 12:25 (4) Acute respiratory failure with hypoxia Status: Acute (5) NSTEMI (non-ST elevation myocardial infarction) Status: Acute (6) Right middle lobe pneumonia Status: Acute Qualifiers: Pneumonia type: due to unspecified organism Qualified Codes: J18.9 - Pneumonia, unspecified organism (7) Atrial fibrillation with RVR Status: Acute (8) Tobacco abuse Status: Acute Clinical Quality Measures DVT/VTE Risk/Contraindication: Risk Factor Score Per Nursin RFS Level Per Nursing on Admit: 4+=Very High DANIELA CHACON MD Oct 05, 2019 15:54
--- NOTE | 2019-10-05 16:11 | Discharge Summary ---
Discharge Summary Date of Admission Sep 28, 2019 at 21:30 Date of Discharge Admission Diagnosis Septic shock Comfort Measures/ End of Life Care: Pallative Care Date of : Oct 05, 2019 Pt was admitted due to septic shock and acute respiratory failure with COPD exacerbation. She was found to have a large invasive right lung mass presumed to be malignant. She continued to deteriorate and was unable to undergo bronchoscopy for formal diagnosis of cancer. She instead elected comfort measures only. She passed peacefully on 10/04. Discharge Diagnosis Community acquired pneumonia Right lung mass Acute respiratory failure with hypoxia COPD without acute exacerbation Tobacco abuse NSTEMI, likely type II Atiral fibrillation with rapid ventricular response Septic shock Lactic acidosis Family elected CCMO Continue current measures geared towards comfort Anticipate is imminent Palliative Care RN consulted, appreciate her expertise (1) Mass of right lung Status: Acute (2) Lactic acidosis Status: Resolved (3) Septic shock Status: Resolved (4) Acute respiratory failure with hypoxia Status: Acute (5) NSTEMI (non-ST elevation myocardial infarction) Status: Acute (6) Right middle lobe pneumonia Status: Acute Qualifiers: Qualified Codes: J18.9 - Pneumonia, unspecified organism (7) Atrial fibrillation with RVR Status: Acute (8) Tobacco abuse Status: Acute DANIELA CHACON MD Oct 05, 2019 16:11
--- NOTE | 2019-10-05 20:29 | NUR ---
PATIENT AT 1600, DAUGHTER, DR CHACON NOTIFIED , NO HOME PICKED UP YET CALLED [place], THEN WAS REFEREED TO [facility] , PATIENT DID NOT QUALIFY FOR ANY ORGAN DONATION - [facility]
[2019-10-06] MEDS ORDERED: TROUGH ORDER-PHARMACY XX NR (09:00)
== END 2019-10-05 20:34 | disposition expired | DRG 871 ==
LOC: ER 20:00 → ICU 21:30 → 4TH 10-03 20:09
PROVIDERS: ADMIT Internal Medicine; ATTEND Internal Medicine
PROC: 06H033Z Insertion of Infusion Device into Inferior Vena Cava, Percutaneous Approach (ICD-10-PCS; principal; 2019-09-28)
DX: A41.9 Sepsis, unspecified organism (principal); R65.21 Severe sepsis with septic shock; J18.9 Pneumonia, unspecified organism; J96.01 Acute respiratory failure with hypoxia; I21.A1 Myocardial infarction type 2; E87.2 Acidosis; J44.1 Chronic obstructive pulmonary disease with (acute) exacerbation; J44.0 Chronic obstructive pulmonary disease with (acute) lower respiratory infection; J90 Pleural effusion, not elsewhere classified; C34.91 Malignant neoplasm of unspecified part of right bronchus or lung; Z66 Do not resuscitate; Z51.5 Encounter for palliative care; I48.0 Paroxysmal atrial fibrillation; F17.210 Nicotine dependence, cigarettes, uncomplicated; D64.9 Anemia, unspecified; E87.6 Hypokalemia; M79.631 Pain in right forearm; R43.1 Parosmia; R53.1 Weakness; M54.9 Dorsalgia, unspecified; Z20.828 Contact with and (suspected) exposure to other viral communicable diseases; Z91.81 History of falling
CPT/HCPCS: 36415; 36600; 51702; 71045; 71275; 73090; 80048; 80053; 80162; 81000; 82805; 83605; 83615; 83735; 83880; 84100; 84145; 84484; 85007; 85025; 85027; 85379; 85610; 85652; 85730; 86141; 87040; 87070; 87081; 87088; 87205; 87449; 87635; 87899; 93005; 93306; 94640; 94660; 96361; 96365; 96366; 96367; 96372; 96375; 99291